=== PATIENT | female | born 1980 | race Caucasian/White ===

== ENCOUNTER 2017-05-15 17:59 | Emergency (ER) | payer OTHER ==
--- NOTE | 2017-05-15 18:12 | PDOC ---
History of Present Illness - General Stated Complaint: OVERDOSE/SUBSTANCE ABUSE Time Seen by Provider: 05/15/17 18:05 History Source: EMS - History of Present Illness Initial Comments: 05/16/17 01:32 36F with pmh of multisubstance abuse brought in by EMS from [address] [place] [address] for narcotic overdose. Per EMS PAtient had pinpoint pupils and unarousable and was given 1 ampoule of narcan intranasally which made the patient aggressive but presently sleeping. Patient currently arousable but goes immediately back to sleep. Good respiratory rate at 20. No signs or respiratory distress or injuries. 05/16/17 01:38 Past History - Past Medical History Allergies/Adverse Reactions: Allergies Allergy/AdvReac Type Severity Reaction Status Date / Time Penicillins Allergy Verified 05/15/17 18:07 Home Medications: Ambulatory Orders NK [No Known Home Medication] 01/04/16 HIV: Yes - Psycho/Social/Smoking Cessation Hx Suicidal Ideation: No Smoking History: Current every day smoker Number of Cigarettes Smoked Daily: 4 Hx Alcohol Use: Yes Drug/Substance Use Hx: Yes (COCAINE ,MARIJUANA) Substance Use Type: Alcohol, Cocaine, Heroin, Marijuana Review of Systems - Review of Systems Able to Perform ROS?: No *Physical Exam - Physical Exam General Appearance: Yes: Intoxicated HEENT: positive: EOMI, NATALIYA, Normal ENT Inspection Respiratory/Chest: positive: Normal Breath Sounds. negative: Chest Tender Cardiovascular: positive: Regular Rhythm, Regular Rate, S1, S2 Vascular Pulses: Dorsalis-Pedis (R): 2+, Doralis-Pedis (L): 2+ Gastrointestinal/Abdominal: positive: Normal Bowel Sounds, Flat, Soft. negative : Tender Lymphatic: negative: Adenopathy Musculoskeletal: positive: Normal Inspection Extremity: positive: Normal Capillary Refill, Normal Inspection. negative: Coldness, Cyanosis Neurologic: positive: Respond to painful stimul, Responsive ED Treatment Course - LABORATORY CBC & Chemistry Diagram: 05/15/17 19:37 05/15/17 19:37 Medical Decision Making - Medical Decision Making 05/16/17 01:38 36 with pmh of multisubstance abuse brought in by EMS from [facility] for narcotic overdose. Urine positive for cocaine, heroin and benzos. Patient sleeping until woke up asking for opiate due to withdrawal, holding her abdomen. Slammed bathroom door, screaming. Patient fell back asleep. Plan is to send the patient back to [address] [place] [address] at 7am. for detox *DC/Admit/Observation/Transfer Diagnosis at time of Disposition: Opiate abuse, continuous
[2017-05-15 18:15] VITALS: BMI 23.1
[2017-05-15 18:36] LABS: URINE APPEARANCE CLEAR; URINE BILIRUBIN NEGATIVE (NEGATIVE); URINE BLOOD 2+ (NEGATIVE); URINE COLOR LTYELLOW; URINE GLUCOSE (UA) NEGATIVE (NEGATIVE); URINE KETONE NEGATIVE (NEGATIVE); URINE LEUK ESTERASE NEGATIVE (NEGATIVE); URINE NITRITE NEGATIVE (NEGATIVE); URINE PROTEIN NEGATIVE (NEGATIVE); URINE UROBILINOGEN NEGATIVE mg/dL (0.2-1.0)
[2017-05-15 18:53] LABS: URINE MARIJUANA THC NEGATIVE ng/ml (CUTOFF=50)
[2017-05-15 18:58] LABS: URINE BACTERIA RARE /hpf (NONE SEEN); URINE MUCUS RARE; URINE RBC 11 /hpf (0-3); URINE WBC 1 /hpf (3-5)
[2017-05-15 19:44] LABS: MCH 28.7 pg (25.7-33.7); MEAN CELL VOLUME 86.8 fl (80-96); MEAN PLT VOLUME 7.9 fl (7.5-11.1); PLATELET COUNT 260 K/MM3 (134-434); WHITE BLOOD COUNT 5.7 K/mm3 (4.0-10.0)
--- NOTE | 2017-05-15 19:46 | PDOC ---
Attending Attestation - Resident Resident Name: Kareem Henry - ED Attending Attestation I have performed the following: I have examined & evaluated the patient, The case was reviewed & discussed with the resident, I agree w/resident's findings & plan, Exceptions are as noted - HPI HPI: 05/15/17 19:44 36 yo F with h/o substance abuse, here from [facility] via ems for overdose. pt reports heroin. is drowsy but arousable. limited history. per EMS pt was brought from [facility]. given dose of narcan en route, woke up and was combative. no known psychiatric history. no other abnormalities. - Physicial Exam PE: 05/15/17 19:45 drowsy, sleeping but arousable with loud voice. pupils small. lungs clear heart rrr nomrg. abd soft nt nd . ext wwp. skin with multiple scars and track santana noted over viens. nuero sleeping but answers questions. voice quiet, mumbling. moves all extremites. ambulated without difficulty - Medical Decision Making 05/16/17 01:35 plan r/o coingestion. no need for repeat narcan now. reassess when clinically more awake labs ivfluids, cbc lytes tox screen with salicylate and tylenol levels.
[2017-05-15] MEDS ORDERED: SODIUM CHLORIDE 1,000 ML IV STA (20:05)
[2017-05-15 20:18] LABS: ALBUMIN 2.4 g/dl (3.4-5.0); ALK PHOS 73 U/L (45-117); ANION GAP 6 (8-16); BILIRUBIN,TOTAL 0.1 mg/dL (0.2-1.0); CALCIUM 8.2 mg/dL (8.5-10.1); CO2 26 mmol/L (21-32); CREATININE 0.9 mg/dL (0.55-1.02); GLUCOSE,RANDOM 85 mg/dL (74-106); SGOT/AST 42 U/L (15-37); SGPT/ALT 30 U/L (12-78); TOT PROT 7.4 g/dl (6.4-8.2)
[2017-05-15 20:37] LABS: PLATELET ESTIMATE ADEQUATE (NORMAL)
[2017-05-15 20:38] LABS: REACTIVE LYMPHOCYTES 3 % (0-80); TOTAL CELLS COUNTED 100
--- NOTE | 2017-05-16 05:38 | PDOC ---
*Physical Exam - Vital Signs Last Vital Signs Temp Pulse Resp BP Pulse Ox 97.9 F 70 16 101/67 98 05/16/17 05:30 05/16/17 05:30 05/16/17 05:30 05/16/17 05:30 05/16/17 05:30 ED Treatment Course - LABORATORY CBC & Chemistry Diagram: 05/15/17 19:37 05/15/17 19:37 - ADDITIONAL ORDERS Additional order review: Laboratory Results 05/15/17 05/15/17 05/15/17 19:39 19:39 19:37 Sodium 140 Potassium 4.2 Chloride 108 H Carbon Dioxide 26 Anion Gap 6 L BUN 15 Creatinine 0.9 Creat Clearance w eGFR > 60 Random Glucose 85 Calcium 8.2 L Total Bilirubin 0.1 L AST 42 H ALT 30 Alkaline Phosphatase 73 Total Protein 7.4 Albumin 2.4 L Urine Color Urine Appearance Urine pH Ur Specific [place] Urine Protein Urine Glucose (UA) Urine Ketones Urine Blood Urine Nitrite Urine Bilirubin Urine Urobilinogen Ur Leukocyte Esterase Urine RBC Urine WBC Ur Epithelial Cells Urine Bacteria Urine Mucus Salicylates < 4.0 Opiates Screen Methadone Screen Acetaminophen Barbiturate Screen Phencyclidine Screen Ur Amphetamines Screen MDMA (Ecstasy) Screen Benzodiazepines Screen Cocaine Screen U Marijuana (THC) Screen Alcohol, Quantitative < 5.0 05/15/17 05/15/17 05/15/17 19:37 18:28 18:28 Sodium Potassium Chloride Carbon Dioxide Anion Gap BUN Creatinine Creat Clearance w eGFR Random Glucose Calcium Total Bilirubin AST ALT Alkaline Phosphatase Total Protein Albumin Urine Color Ltyellow Urine Appearance Clear Urine pH 6.0 Ur Specific [place] 1.015 Urine Protein Negative Urine Glucose (UA) Negative Urine Ketones Negative Urine Blood 2+ H Urine Nitrite Negative Urine Bilirubin Negative Urine Urobilinogen Negative Ur Leukocyte Esterase Negative Urine RBC 11 Urine WBC 1 Ur Epithelial Cells Moderate Urine Bacteria Rare Urine Mucus Rare Salicylates Opiates Screen Positive Methadone Screen Negative Acetaminophen < 2.000 L Barbiturate Screen Negative Phencyclidine Screen Negative Ur Amphetamines Screen Negative MDMA (Ecstasy) Screen Negative Benzodiazepines Screen Positive Cocaine Screen Positive U Marijuana (THC) Screen Negative Alcohol, Quantitative 05/15/17 19:37 RBC 3.76 MCV 86.8 MCHC 33.0 RDW 14.0 MPV 7.9 Neutrophils % Y Lymphocytes % Y - Medications Given in the ED: ED Medications Discontinued Medications Generic Name Dose Route Start Last Admin Trade Name Bel PRN Reason Stop Dose Admin Sodium Chloride 1,000 mls @ 1,000 mls/hr 05/15/17 20:05 05/15/17 20:06 Normal Saline - IV 05/15/17 21:04 1,000 mls/hr ASDIR STA Administration Medical Decision Making - Medical Decision Making 05/16/17 05:36 Sign-out received from outgoing Emergency Physician DR. Chandler Pt interviewed and examined Ancillary studies reviewed Case discussed in detail with oncoming Emergency Physician including history, physical exam and ancillary studies. Vital Signs Temp Pulse Resp BP Pulse Ox 97.9 F 70 16 101/67 98 05/16/17 05:30 05/16/17 05:30 05/16/17 05:30 05/16/17 05:30 05/16/17 05:30 Patient's blood work and toxicological screen reviewed. The patient has been observed for over 11 hours and now is ambulatory and awake. She is requesting detoxification from polysubstance abuse. I spoken with Dr. Steele who states the patient can be sent to [address] [place] [address] at 8 am. Pt agrees with plan. *DC/Admit/Observation/Transfer Diagnosis at time of Disposition: Opiate abuse, continuous - Discharge Dispostion Disposition: TRANSFER ACUTE CARE/OTHER HOSP Condition at time of disposition: Stable - Transfer to Acute Care Facility Accepting Physician:: Dr. Benson. [facility].
[2017-05-16 08:28] VITALS: TEMP 98.1
[2017-05-16 08:40] VITALS: BP 102/68; PULSE 66
--- NOTE | 2017-05-17 21:35 | EKG ---
Test Reason : Blood Pressure : / mmHG Vent. Rate : 074 BPM Atrial Rate : 074 BPM P-R Int : 196 ms QRS Dur : 090 ms QT Int : 394 ms P-R-T Axes : 051 022 037 degrees QTc Int : 437 ms POOR DATA QUALITY, INTERPRETATION MAY BE ADVERSELY AFFECTED NORMAL SINUS RHYTHM NORMAL ECG NO PREVIOUS ECGS AVAILABLE Confirmed by KATERINA OSORIO MD ([id number]) on 05/17/2017 9:34:49 PM Referred By: Confirmed By:KATERINA OSORIO MD
== END 2017-05-16 08:43 | disposition other institution (70) ==
LOC: JER 17:59
PROC: 3E0337Z Introduction of Electrolytic and Water Balance Substance into Peripheral Vein, Percutaneous Approach (ICD-10-PCS; principal; 2017-05-15)
DX: F11.10 Opioid abuse, uncomplicated (principal); T40.1X4A Poisoning by heroin, undetermined, initial encounter; Y92.89 Other specified places as the place of occurrence of the external cause; F14.10 Cocaine abuse, uncomplicated; F13.10 Sedative, hypnotic or anxiolytic abuse, uncomplicated
CPT/HCPCS: 36415; 80053; 80307; 81003; 81015; 85025; 93005; 93010; 96360; 99285-25

== ENCOUNTER 2017-05-16 09:37 | Inpatient (IN) | payer OTHER ==
[2017-05-16 09:54] VITALS: BMI 19.3
--- NOTE | 2017-05-16 12:16 | HP ---
COWS - Scale Resting Pulse: 0= [place] 80 or Below Sweatin= Chills/Flushing Restless Observation: 1= Difficult to Sit Still Pupil Size: 0= Normal to Room Light Bone or Joint Aches: 2= Severe Diffuse Aches Runny Nose/ Eye Tearin= Runny Nose/Eyes GI Upset > 30mins: 2= Nausea/Diarrhea Tremor Observation: 1= Tremor [place], Not Seen Yawning Observation: 1= 1-2x During Session Anxiety or Irritability: 2=Irritable/Anxious Goose Flesh Skin: 0=Smooth Skin COWS Score: 12 Admission ROS S - HPI Chief Complaint: I need detox, I'm sick Allergies/Adverse Reactions: Allergies Allergy/AdvReac Type Severity Reaction Status Date / Time Penicillins Allergy Verified 05/16/17 11:52 History of Present Illness: 36 yo woman here for detox from heroin - was here yesterday, sent to [facility] ED for observation/eval due to oversedation - now comes here from [facility] ED for detox. Patient HIV+ but no care for three years,history of seizures and untreated hep c. Exam Limitations: Clinical Condition - Ebola screening Have you traveled outside of the country in the last 21 days: No Have you had contact with anyone from an Ebola affected area: No Have you been sick,other than usual withdrawal symptoms: No Do you have a fever: No - Review of Systems Constitutional: Chills, Loss of Appetite, Malaise, Night Sweats, Changes in sleep, Weakness, Unintentional Wgt. Loss EENT: reports: Nose Congestion Respiratory: reports: No Symptoms reported Cardiac: reports: No Symptoms Reported GI: reports: Poor Appetite, Indigestion, Abdominal cramping : reports: No Symptoms Reported Musculoskeletal: reports: Back Pain, Muscle Pain, Muscle Weakness Integumentary: reports: Lesions (right thigh healed scab; back of left calf with erythematous swelling covered by bandaid) Neuro: reports: Headache, Seizure Endocrine: reports: No Symptoms Reported Hematology: reports: No Symptoms Reported Psychiatric: reports: Judgement Intact, Mood/Affect Appropiate, Orientated x3 Other Systems: Reviewed and Negative Patient History - Patient Medical History Hx Asthma: No Hx Chronic Obstructive Pulmonary Disease (COPD): No Hx Cancer: No Hx Cardiac Disorders: No Hx Hypertension: No Hx Seizures: Yes (last one month - drug related) Hx Diabetes: No Hx Gastrointestinal Disorders: No Hx Genitourinary Disorders: No Hx Sexually Transmitted Disorders: No Hx Renal Disease (ESRD): No Hx Human Immunodeficiency Virus (HIV): Yes (no treatment or care x 3 years) Hx Hepatitis C: Yes (not treated) Hx Depression: Yes (history of being hospitalized years ago) Hx Suicide Attempt: Yes (long time) Hx Bipolar Disorder: Yes Hx Schizophrenia: Yes (sometimes hears voices) - Patient Surgical History Past Surgical History: No Hx Neurologic Surgery: No Hx Cataract Extraction: No Hx Cardiac Surgery: No Hx Lung Surgery: No Hx Breast Surgery: No Hx Breast Biopsy: No Hx Abdominal Surgery: No Hx Appendectomy: No Hx Cholecystectomy: No Hx Genitourinary Surgery: No Hx Section: No Hx Orthopedic Surgery: No Anesthesia Reaction: No - PPD History Previous Implant?: Yes Documented Results: Negative w/o proof - Reproductive History Patient is a Female of Child Bearing Age (11 -55 yrs old): Yes - Smoking Cessation Smoking history: Current every day smoker Aproximately how many cigarettes per day: 4 Hx Chewing Tobacco Use: No Initiated information on smoking cessation: Yes 'Breaking Loose' booklet given: 05/16/17 (give on floor) - Substance & Tx. History Hx Alcohol Use: No Hx Substance Use: Yes Substance Use Type: Cocaine, Heroin Hx Substance Use Treatment: Yes (detox, rehab) - Substances Abused Heroin Route: Injection Frequency: Daily Amount used: 1gm Age of first use: 16 Date of Last Use: 05/15/17 Cocaine Route: Injection Frequency: Daily Amount used: 3 bags Age of first use: 20 Date of Last Use: 05/15/17 Family Disease History - Family Disease History Family Disease History: Other: Father (no contact), Mother (living, no contact) , Brother (none), Sister (none), Son (3 sons - in [place] - healthy), Daughter ( 2 daughters -[place] - healthy) Admission Physical Exam S - Vital Signs Vital Signs: Vital Signs - 24 hr 05/16/17 09:52 Temperature 98.9 F Pulse Rate 72 Respiratory 18 Rate Blood Pressure 118/85 - Physical General Appearance: Yes: Nourished, Appropriately Dressed, Moderate Distress, Thin, Irritable HEENTM: Yes: Hearing grossly Normal, Normocephalic, Normal Voice, Other (oral thrush) Respiratory: Yes: Normal Breath Sounds, No Respiratory Distress Neck: Yes: No masses,lesions,Nodules, Supple Breast: Yes: Breast Exam Deferred Cardiology: Yes: Regular Rhythm, Regular Rate Abdominal: Yes: Flat, Soft Genitourinary: Yes: Within Normal Limits Back: Yes: Normal Inspection Musculoskeletal: Yes: full range of Motion, Muscle Pain, Muscle weakness Extremities: Yes: Normal Range of Motion Neurological: Yes: Alert Integumentary: Yes: Warm, Track [place] (both arms, left jugular, legs), Other ( healed scab right thigh; erythematous painful swelling behind left calf) Lymphatic: Yes: Within Normal Limits - Diagnostic (1) Cocaine abuse Current Visit: Yes Status: Chronic (2) Opiate abuse, continuous Current Visit: Yes Status: Chronic (3) HIV (human immunodeficiency virus infection) Current Visit: Yes Status: Chronic (4) Hepatitis C Current Visit: Yes Status: Chronic Qualifiers: Viral hepatitis chronicity: chronic Hepatic coma status: without hepatic coma Qualified Code(s): B18.2 - Chronic viral hepatitis C (5) Abscess Current Visit: Yes Status: Acute Comment: left calf (6) History of seizure Current Visit: Yes Status: Chronic (7) Nicotine dependence Current Visit: Yes Status: Acute Qualifiers: Nicotine product type: cigarettes Substance use status: uncomplicated Qualified Code(s): F17.210 - Nicotine dependence, cigarettes, uncomplicated (8) Oral thrush Current Visit: Yes Status: Chronic Cleared for Admission [facility] - Detox or Rehab [facility] Level of Care: Medically Managed Detox Regimen/Protocol: Methadone [facility] Breath Alcohol Content Breath Alcohol Content: 0 Urine Pregancy Test - Result Urine Test Results: Negative- NO Line Present Urine Drug Screen - Results Drug Screen Negative: No Urine Drug Screen Results: ISNCERE-Cocaine, OPI-Opiates, BZO-Benzodiazepines
[2017-05-16] MEDS ORDERED: IBUPROFEN 400 MG TABLET (FP) PO PRN (12:37)
[2017-05-16] MEDS ORDERED: NICOTINE POLACRILEX 2 MG GUM BUC PRN (12:37)
[2017-05-16] MEDS ORDERED: ACETAMINOPHEN 325 MG TABLET (FP) PO PRN (12:37)
[2017-05-16] MEDS ORDERED: P-EPHED 60MG/TRIPROLIDI 2.5MG TABLET PO PRN (12:37)
[2017-05-16] MEDS ORDERED: LOPERAMIDE HCL 2 MG CAPSULE PO PRN (12:37)
[2017-05-16] MEDS ORDERED: MAGNESIUM CITRATE 300 ML BOTTLE PO PRN (12:37)
[2017-05-16] MEDS ORDERED: guaiFENesin/D-METHORPHAN HB 10 ML UNIT-DOSE CUPS PO PRN (12:37)
[2017-05-16] MEDS ORDERED: MENTHOL/PHENOL 1 EACH UD MM PRN (12:37)
[2017-05-16] MEDS ORDERED: MAGNESIUM HYDROX 2400MG/30ML ORAL SUSPENSION 30 ML CUP PO PRN (12:37)
[2017-05-16] MEDS ORDERED: METHADONE HCL 10 MG TABLET (FOR DETOX USE ONLY) PO ONE ×2 (13:15→23:00)
[2017-05-16] MEDS: diazePAM 5 MG TABLET PO PRN ×2 (14:33→22:26)
[2017-05-16] MEDS: CEFUROXIME AXETIL 250 MG TABLET PO SCH ×2 (15:19→22:26)
[2017-05-16] MEDS: CLOTRIMAZOLE 10 MG TROCHE (FP) PO SCH ×3 (15:20→22:26)
[2017-05-16 18:54] LABS: URINE APPEARANCE SLCLOUDY; URINE BILIRUBIN NEGATIVE (NEGATIVE); URINE BLOOD 1+ (NEGATIVE); URINE COLOR YELLOW; URINE GLUCOSE (UA) NEGATIVE (NEGATIVE); URINE KETONE NEGATIVE (NEGATIVE); URINE LEUK ESTERASE NEGATIVE (NEGATIVE); URINE NITRITE NEGATIVE (NEGATIVE); URINE PROTEIN NEGATIVE (NEGATIVE); URINE UROBILINOGEN NEGATIVE mg/dL (0.2-1.0)
[2017-05-16 19:06] LABS: URINE BACTERIA RARE /hpf (NONE SEEN); URINE MUCUS RARE; URINE RBC 29 /hpf (0-3); URINE WBC <1 /hpf (3-5)
[2017-05-16] MEDS: THIAMINE HCL 100 MG TABLET (FP) PO SCH (22:26)
[2017-05-16] MEDS: diphenhydrAMINE HCL 50 MG CAPSULE PO PRN (22:27)
[2017-05-17] MEDS: CLOTRIMAZOLE 10 MG TROCHE (FP) PO SCH ×5 (05:29→22:23)
[2017-05-17] MEDS: diazePAM 5 MG TABLET PO PRN ×2 (05:30→10:28)
[2017-05-17 09:59] LABS: MCH 28.6 pg (25.7-33.7); MCHC 33.5 g/dl (32.0-36.0); MEAN CELL VOLUME 85.6 fl (80-96); PLATELET COUNT 315 K/MM3 (134-434); RDW 13.5 % (11.6-15.6); WHITE BLOOD COUNT 4.3 K/mm3 (4.0-10.0)
[2017-05-17] MEDS ORDERED: METHADONE HCL 10 MG TABLET (FOR DETOX USE ONLY) PO ONE (10:00)
[2017-05-17] MEDS: PRENATAL VITAMINS W/ FOLIC ACID TABLET (FP) PO SCH (10:26)
[2017-05-17] MEDS: CEFUROXIME AXETIL 250 MG TABLET PO SCH ×2 (10:26→22:22)
[2017-05-17 10:30] LABS: ALBUMIN 2.4 g/dl (3.4-5.0); ALK PHOS 75 U/L (45-117); ANION GAP 5 (8-16); BILIRUBIN,TOTAL 0.3 mg/dL (0.2-1.0); CALCIUM 8.2 mg/dL (8.5-10.1); CO2 26 mmol/L (21-32); CREATININE 0.8 mg/dL (0.55-1.02); GLUCOSE,RANDOM 89 mg/dL (74-106); SGOT/AST 34 U/L (15-37); SGPT/ALT 29 U/L (12-78); TOT PROT 7.3 g/dl (6.4-8.2)
[2017-05-17] MEDS: hydrOXYzine PAMOATE 50 MG CAPSULE (FP) PO PRN ×3 (11:13→23:31)
[2017-05-17] MEDS ORDERED: chlordiazePOXIDE HCL 25 MG CAPSULE PO PRN (12:35)
[2017-05-17] MEDS ORDERED: chlordiazePOXIDE HCL 25 MG CAPSULE PO ONE (12:35)
--- NOTE | 2017-05-17 15:13 | PN ---
[facility] CIWA - CIWA Score Nausea/Vomitin Muscle Tremors: 3 Anxiety: 2 Agitation: 2 Paroxysmal Sweats: 1-Minimal Palms Moist Orientation: 0-Oriented Tacttile Disturbances: 1-Very Mild Itch/Numbness Auditory Disturbances: 1-Very Mild Visual Disturbances: 1-Very Mild Sensitivity Headache: 2-Mild CIWA-Ar Total Score: 16 BHS COWS - Scale Resting Pulse: 0= [place] 80 or Below Sweatin= Chills/Flushing Restless Observation: 3= Extraneous Movement Pupil Size: 1= Pupils >than Normal Bone or Joint Aches: 2= Severe Diffuse Aches Runny Nose/ Eye Tearin= Runny Nose/Eyes GI Upset > 30mins: 2= Nausea/Diarrhea Tremor Observation of Outstretched Hands: 2= Slight Tremor Visible Yawning Observation: 1= 1-2x During Session Anxiety or Irritability: 2=Irritable/Anxious Goose Flesh Skin: 0=Smooth Skin COWS Score: 16 S Progress Note (SOAP) Subjective: ALERT,IRRITABLE,ANXIOUS,INTERRUPTED SLEEP,PAIN IN THE BODY AND BACK,TREMOR Objective: 05/17/17 15:10 Vital Signs Temperature 98.1 F 05/17/17 14:10 Pulse Rate 86 05/17/17 14:10 Respiratory Rate 18 05/17/17 14:10 Blood Pressure 113/80 05/17/17 14:10 O2 Sat by Pulse Oximetry (%) EKG NSR WITH MARKED SINUS ARRHYTHMIA ST DEGREE AV BLOCK Laboratory Last Values WBC 4.3 K/mm3 (4.0-10.0) 05/17/17 07:50 RBC 3.98 M/mm3 (3.60-5.2) 05/17/17 07:50 Hgb 11.4 GM/dL (10.7-15.3) 05/17/17 07:50 Hct 34.1 % (32.4-45.2) 05/17/17 07:50 MCV 85.6 fl (80-96) 05/17/17 07:50 MCH 28.6 pg (25.7-33.7) 05/17/17 07:50 MCHC 33.5 g/dl (32.0-36.0) 05/17/17 07:50 RDW 13.5 % (11.6-15.6) 05/17/17 07:50 Plt Count 315 K/MM3 (134-434) D 05/17/17 07:50 MPV 8.0 fl (7.5-11.1) 05/17/17 07:50 Sodium 141 mmol/L (136-145) 05/17/17 07:50 Potassium 4.4 mmol/L (3.5-5.1) 05/17/17 07:50 Chloride 110 mmol/L (98-107) H 05/17/17 07:50 Carbon Dioxide 26 mmol/L (21-32) 05/17/17 07:50 Anion Gap 5 (8-16) L 05/17/17 07:50 BUN 11 mg/dL (7-18) D 05/17/17 07:50 Creatinine 0.8 mg/dL (0.55-1.02) 05/17/17 07:50 Creat Clearance w eGFR > 60 (>60) 05/17/17 07:50 Random Glucose 89 mg/dL (74-106) 05/17/17 07:50 Calcium 8.2 mg/dL (8.5-10.1) L 05/17/17 07:50 Total Bilirubin 0.3 mg/dL (0.2-1.0) D 05/17/17 07:50 AST 34 U/L (15-37) 05/17/17 07:50 ALT 29 U/L (12-78) 05/17/17 07:50 Alkaline Phosphatase 75 U/L (45-117) 05/17/17 07:50 Total Protein 7.3 g/dl (6.4-8.2) 05/17/17 07:50 Albumin 2.4 g/dl (3.4-5.0) L 05/17/17 07:50 Urine Color Yellow 05/16/17 13:28 Urine Appearance Slcloudy 05/16/17 13:28 Urine pH 7.0 (5.0-8.0) 05/16/17 13:28 Ur Specific [place] 1.015 (1.005-1.025) 05/16/17 13:28 Urine Protein Negative (NEGATIVE) 05/16/17 13:28 Urine Glucose (UA) Negative (NEGATIVE) 05/16/17 13:28 Urine Ketones Negative (NEGATIVE) 05/16/17 13:28 Urine Blood 1+ (NEGATIVE) H 05/16/17 13:28 Urine Nitrite Negative (NEGATIVE) 05/16/17 13:28 Urine Bilirubin Negative (NEGATIVE) 05/16/17 13:28 Urine Urobilinogen Negative mg/dL (0.2-1.0) 05/16/17 13:28 Ur Leukocyte Esterase Negative (NEGATIVE) 05/16/17 13:28 Urine RBC 29 /hpf (0-3) 05/16/17 13:28 Urine WBC <1 /hpf (3-5) 05/16/17 13:28 Ur Epithelial Cells Rare /hpf (FEW) 05/16/17 13:28 Urine Bacteria Rare /hpf (NONE SEEN) 05/16/17 13:28 Urine Mucus Rare 05/16/17 13:28 RPR Titer Nonreactive (NONREACTIVE) 05/17/17 07:50 Assessment: 05/17/17 15:12 WITHDRAWAL SYMPTOM Plan: CONTINUE DETOX,PATIENT WOULD LIKE REGIMEN TO CHANGE TO LIBRIUM INSTEAD OF VALIUM
[2017-05-17] MEDS: chlordiazePOXIDE HCL 25 MG CAPSULE PO SCH ×2 (17:38→22:23)
--- NOTE | 2017-05-17 22:11 | EKG ---
Test Reason : Blood Pressure : / mmHG Vent. Rate : 060 BPM Atrial Rate : 060 BPM P-R Int : 258 ms QRS Dur : 100 ms QT Int : 456 ms P-R-T Axes : 039 022 033 degrees QTc Int : 456 ms SINUS RHYTHM WITH MOBITZ I (WENCKEBACH) BLOCK WHEN COMPARED WITH ECG OF 15-MAY-2017 18:56, MOBITZ I (WENCKEBACH) BLOCK IS NOW PRESENT Confirmed by DEVON BUSTAMANTE, KATERINA ([id number]) on 05/17/2017 10:11:18 PM Referred By: Confirmed By:KATERINA OSORIO MD
[2017-05-17] MEDS: diphenhydrAMINE HCL 50 MG CAPSULE PO PRN (22:22)
[2017-05-17] MEDS: THIAMINE HCL 100 MG TABLET (FP) PO SCH (22:23)
[2017-05-18] MEDS: chlordiazePOXIDE HCL 25 MG CAPSULE PO SCH ×4 (05:43→23:15)
[2017-05-18] MEDS: CLOTRIMAZOLE 10 MG TROCHE (FP) PO SCH ×5 (05:43→22:32)
--- NOTE | 2017-05-18 07:40 | CONSULT ---
[facility] Psychiatric Consult - Data Date of interview: 05/18/17 Admission source: [facility] Identifying data: This is 36 years old female with history of Bipolar Disorder and Schizophrenia, history of psychiatric hospitalizations, intoxiocated with Cocaine, Heroina and Nicotine Substance Abuse History: - Smoking Cessation. Smoking history: Current every day smoker. Aproximately how many cigarettes per day: 4. Hx Chewing Tobacco Use: No. Initiated information on smoking cessation: Yes. 'Breaking Loose' booklet given: 05/16/17 (give on floor). - Substance & Tx. History. Hx Alcohol Use: No. Hx Substance Use: Yes. Substance Use Type: Cocaine, Heroin. Hx Substance Use Treatment: Yes (detox, rehab). - Substances Abused. Heroin. Route: Injection. Frequency: Daily. Amount used: 1gm. Age of first use: 16. Date of Last Use: 05/15/17. Cocaine. Route: Injection. Frequency : Daily. Amount used: 3 bags. Age of first use: 20. Date of Last Use: Medical History: HIV, HepC+, Seizure history, Psychiatric History: Patient reports history od Bipolar Disorder, as per computer tjere is a history of Schizophrenia, with most recent psychiatroc admission on 6 weeks ago at [facility] for safety, reportw history of suicidal attempts, no scure, stitches are visible, reports taking in the past: Deopakote 250mg po bid. Trazodone 100mg po qhs Physical/Sexual Abuse/Trauma History: Denies, unclear Additional Comment: Deopakote 250mg po bid. Trazodone 100mg po qhs Mental Status Exam - Mental Status Exam Alert and Oriented to: Person Cognitive Function: Fair Patient Appearance: Unkempt Mood: Withdrawn, Anxious, Irritable Affect: Constricted Patient Behavior: Cooperative Speech Pattern: Delayed Voice Loudness: Mildly Loud Thought Process: Circumstantial Thought Disorder: Being Controlled Hallucinations: Denies Suicidal Ideation: Denies Homicidal Ideation: Denies Insight/Judgement: Fair Sleep: Difficulty falling asleep Appetite: Weight loss Muscle strength/Tone: Normal Gait/Station: Shuffling Additional Comments: Deopakote 250mg po bid. Trazodone 100mg po qhs. Haldol 2mg po stat. Benadryl 50mg po stat Psychiatric Findings - Problem List ([place] 1, 2,3) (1) Nicotine dependence Current Visit: Yes Status: Acute Qualifiers: Nicotine product type: cigarettes Substance use status: uncomplicated Qualified Code(s): F17.210 - Nicotine dependence, cigarettes, uncomplicated (2) Cocaine abuse Current Visit: Yes Status: Chronic (3) Opiate abuse, continuous Current Visit: Yes Status: Chronic (4) Bipolar 1 disorder Current Visit: Yes Status: Acute (5) Schizophrenia Current Visit: Yes Status: Acute - Initial Treatment Plan Initial Treatment Plan: Deopakote 250mg po bid. Trazodone 100mg po qhs. Haldol 2mg po stat. Benadryl 50mg po stat
[2017-05-18] MEDS: cloNIDine HCL 0.1 MG TABLET PO SCH ×2 (09:03→22:33)
[2017-05-18] MEDS ORDERED: diphenhydrAMINE HCL 25 MG CAPSULE (FP) PO ONE (09:15)
[2017-05-18] MEDS ORDERED: HALOPERIDOL 2 MG TABLET PO ONE (09:15)
[2017-05-18] MEDS: CEFUROXIME AXETIL 250 MG TABLET PO SCH ×2 (09:42→22:55)
[2017-05-18] MEDS: PRENATAL VITAMINS W/ FOLIC ACID TABLET (FP) PO SCH (09:42)
[2017-05-18] MEDS: DIVALPROEX SODIUM 250 MG TABLET E.C. (FP) PO SCH ×2 (09:43→22:32)
[2017-05-18] MEDS ORDERED: METHADONE HCL 5 MG TABLET (FOR DETOX USE ONLY) PO ONE (10:00)
[2017-05-18] MEDS: hydrOXYzine PAMOATE 50 MG CAPSULE (FP) PO PRN ×2 (10:33→15:35)
--- NOTE | 2017-05-18 11:28 | PN ---
[facility] CIWA - CIWA Score Nausea/Vomitin-No Nausea/No Vomiting Muscle Tremors: 4-Moderate,w/Arms Extend Anxiety: 3 Agitation: 4-Moderately Restless Paroxysmal Sweats: 3 Orientation: 0-Oriented Tacttile Disturbances: 0-None Auditory Disturbances: 0-None Visual Disturbances: 0-None Headache: 0-None Present CIWA-Ar Total Score: 14 BHS COWS - Scale Resting Pulse: 2= [place] 101-120 Sweatin= Chills/Flushing Restless Observation: 1= Difficult to Sit Still Pupil Size: 0= Normal to Room Light Bone or Joint Aches: 2= Severe Diffuse Aches Runny Nose/ Eye Tearin= Nasal Congestion GI Upset > 30mins: 2= Nausea/Diarrhea Tremor Observation of Outstretched Hands: 2= Slight Tremor Visible Yawning Observation: 2= >3x During Session Anxiety or Irritability: 2=Irritable/Anxious Goose Flesh Skin: 0=Smooth Skin COWS Score: 15 S Progress Note (SOAP) Subjective: irritable agitation anxiety sweats interrupted sleep cut to my right ear Objective: 05/18/17 11:29 Vital Signs Temperature 97.0 F L 05/18/17 10:00 Pulse Rate 104 H 05/18/17 10:00 Respiratory Rate 20 05/18/17 10:00 Blood Pressure 122/86 05/18/17 10:00 O2 Sat by Pulse Oximetry (%) Laboratory Tests 05/16/17 05/17/17 05/17/17 13:28 07:50 07:50 WBC 4.3 RBC 3.98 Hgb 11.4 Hct 34.1 MCV 85.6 MCH 28.6 MCHC 33.5 RDW 13.5 Plt Count 315 D MPV 8.0 Sodium 141 Potassium 4.4 Chloride 110 H Carbon Dioxide 26 Anion Gap 5 L BUN 11 D Creatinine 0.8 Creat Clearance w eGFR > 60 Random Glucose 89 Calcium 8.2 L Total Bilirubin 0.3 D AST 34 ALT 29 Alkaline Phosphatase 75 Total Protein 7.3 Albumin 2.4 L Urine Color Yellow Urine Appearance Slcloudy Urine pH 7.0 Ur Specific [place] 1.015 Urine Protein Negative Urine Glucose (UA) Negative Urine Ketones Negative Urine Blood 1+ H Urine Nitrite Negative Urine Bilirubin Negative Urine Urobilinogen Negative Ur Leukocyte Esterase Negative Urine RBC 29 Urine WBC <1 Ur Epithelial Cells Rare Urine Bacteria Rare Urine Mucus Rare RPR Titer 05/17/17 07:50 WBC RBC Hgb Hct MCV MCH MCHC RDW Plt Count MPV Sodium Potassium Chloride Carbon Dioxide Anion Gap BUN Creatinine Creat Clearance w eGFR Random Glucose Calcium Total Bilirubin AST ALT Alkaline Phosphatase Total Protein Albumin Urine Color Urine Appearance Urine pH Ur Specific [place] Urine Protein Urine Glucose (UA) Urine Ketones Urine Blood Urine Nitrite Urine Bilirubin Urine Urobilinogen Ur Leukocyte Esterase Urine RBC Urine WBC Ur Epithelial Cells Urine Bacteria Urine Mucus RPR Titer Nonreactive awake/alert ambulating no acute distress Assessment: 05/18/17 11:29 withdrawal sx Plan: continue detox increase fluids bacitracin oint
[2017-05-18] MEDS ORDERED: BACITRACIN 0.9 GM PACKET ONE (11:53)
[2017-05-18] MEDS: BACITRACIN 0.9 GM PACKET TP SCH ×2 (13:31→22:32)
[2017-05-18] MEDS: THIAMINE HCL 100 MG TABLET (FP) PO SCH (22:32)
[2017-05-18] MEDS: traZODone HCL 50 MG TABLET (FP) PO SCH (22:32)
[2017-05-18] MEDS: SILVER SULFADIAZINE 1% TOP CREAM 50 GM JAR TP SCH (22:55)
[2017-05-19] MEDS: chlordiazePOXIDE HCL 25 MG CAPSULE PO SCH ×2 (06:19→10:02)
[2017-05-19] MEDS: CLOTRIMAZOLE 10 MG TROCHE (FP) PO SCH ×5 (06:19→22:14)
[2017-05-19] MEDS ORDERED: METHADONE HCL 5 MG TABLET (FOR DETOX USE ONLY) PO ONE (10:00)
[2017-05-19] MEDS: BACITRACIN 0.9 GM PACKET TP SCH ×2 (10:02→22:13)
[2017-05-19] MEDS: DIVALPROEX SODIUM 250 MG TABLET E.C. (FP) PO SCH ×2 (10:02→22:14)
[2017-05-19] MEDS: cloNIDine HCL 0.1 MG TABLET PO SCH ×2 (10:02→22:13)
[2017-05-19] MEDS: PRENATAL VITAMINS W/ FOLIC ACID TABLET (FP) PO SCH (10:02)
[2017-05-19] MEDS: CEFUROXIME AXETIL 250 MG TABLET PO SCH ×2 (10:02→22:14)
[2017-05-19] MEDS: SILVER SULFADIAZINE 1% TOP CREAM 50 GM JAR TP SCH ×2 (10:47→22:14)
[2017-05-19] MEDS: CYCLOBENZAPRINE HCL 10 MG TABLET (FP) PO PRN ×3 (11:46→22:14)
--- NOTE | 2017-05-19 11:54 | PN ---
BHS Progress Note (SOAP) Subjective: sweats agitation body aches shakes Objective: 05/19/17 11:53 Vital Signs Temperature 97.5 F L 05/19/17 10:34 Pulse Rate 90 05/19/17 10:34 Respiratory Rate 18 05/19/17 10:34 Blood Pressure 106/71 05/19/17 10:34 O2 Sat by Pulse Oximetry (%) awake/alert ambulating no acute distress Assessment: 05/19/17 11:53 withdrawal sx Plan: continue detox increase fluids flexiril prn
[2017-05-19] MEDS: hydrOXYzine PAMOATE 50 MG CAPSULE (FP) PO PRN ×2 (12:37→18:34)
[2017-05-19] MEDS: MAG HYDROX/AL HYDROX/SIMETH 30 ML UNIT-DOSE CUP PO PRN ×2 (12:37→22:18)
[2017-05-19] MEDS: chlordiazePOXIDE 5 MG CAPSULE PO SCH ×2 (17:09→22:54)
[2017-05-19] MEDS: traZODone HCL 50 MG TABLET (FP) PO SCH (22:14)
[2017-05-19] MEDS: THIAMINE HCL 100 MG TABLET (FP) PO SCH (22:14)
[2017-05-20] MEDS: chlordiazePOXIDE 5 MG CAPSULE PO SCH ×2 (06:44→10:36)
[2017-05-20] MEDS: CLOTRIMAZOLE 10 MG TROCHE (FP) PO SCH ×5 (06:44→22:14)
[2017-05-20] MEDS ORDERED: METHADONE HCL 10 MG TABLET (FOR DETOX USE ONLY) PO ONE (10:00)
[2017-05-20] MEDS: PRENATAL VITAMINS W/ FOLIC ACID TABLET (FP) PO SCH (10:37)
[2017-05-20] MEDS: DIVALPROEX SODIUM 250 MG TABLET E.C. (FP) PO SCH ×2 (10:37→22:14)
[2017-05-20] MEDS: cloNIDine HCL 0.1 MG TABLET PO SCH ×2 (10:37→22:13)
[2017-05-20] MEDS: CEFUROXIME AXETIL 250 MG TABLET PO SCH ×2 (10:37→22:13)
[2017-05-20] MEDS: SILVER SULFADIAZINE 1% TOP CREAM 50 GM JAR TP SCH ×2 (10:37→22:29)
[2017-05-20] MEDS: BACITRACIN 0.9 GM PACKET TP SCH ×2 (10:37→22:13)
--- NOTE | 2017-05-20 11:18 | PN ---
BHS Progress Note (SOAP) Subjective: sweats interrupted sleep anxiety Objective: 05/20/17 11:17 Vital Signs Temperature 97.5 F L 05/20/17 10:25 Pulse Rate 95 H 05/20/17 10:25 Respiratory Rate 18 05/20/17 10:25 Blood Pressure 106/73 05/20/17 10:25 O2 Sat by Pulse Oximetry (%) awake/alert ambulating no acute distress Assessment: 05/20/17 11:18 withdrawal sx Plan: continue detox increase fluids d/c in am
--- NOTE | 2017-05-20 13:47 | PN ---
S Progress Note Note: pt has a small 1.2 x 1.2cm wound to right lower leg, small amount of sloth to inner area, surrounding tissues clean intact with no s/s of infection. minimal amt of yellow drainage noted. wound healing slowly. pt will continue to take her oral ABX as ordered. pt will continue to cleanse wound with normal saline and apply silverdene cream to wound daily until wound is completely healed. pt teaching done by RN on duty. pt is able to demonstrate proper wound care appropriately.
[2017-05-20] MEDS: hydrOXYzine PAMOATE 50 MG CAPSULE (FP) PO PRN ×2 (14:02→18:15)
[2017-05-20] MEDS: CYCLOBENZAPRINE HCL 10 MG TABLET (FP) PO PRN ×2 (14:02→22:14)
[2017-05-20] MEDS: chlordiazePOXIDE HCL 10 MG CAPSULE PO SCH ×2 (17:10→22:14)
[2017-05-20] MEDS: traZODone HCL 50 MG TABLET (FP) PO SCH (22:14)
[2017-05-20] MEDS: diphenhydrAMINE HCL 50 MG CAPSULE PO PRN (22:14)
[2017-05-20] MEDS: THIAMINE HCL 100 MG TABLET (FP) PO SCH (22:14)
[2017-05-21] MEDS ORDERED: METHADONE HCL 5 MG TABLET (FOR DETOX USE ONLY) PO ONE (06:00)
[2017-05-21] MEDS: CLOTRIMAZOLE 10 MG TROCHE (FP) PO SCH ×2 (06:50→09:53)
[2017-05-21] MEDS: chlordiazePOXIDE HCL 10 MG CAPSULE PO SCH (06:50)
--- NOTE | 2017-05-21 09:34 | DS ---
[facility] Detox Discharge Summary Admission Date: 05/16/17 Discharge Date: 05/21/17 - History Present History: Alcohol Dependence, Cocaine Dependence, Opioid Dependence - Physical Exam Results Vital Signs: Vital Signs Temperature 97.0 F L 05/21/17 06:48 Pulse Rate 61 05/21/17 06:48 Respiratory Rate 16 05/21/17 06:48 Blood Pressure 102/62 05/21/17 06:48 O2 Sat by Pulse Oximetry (%) - Treatment Hospital Course: Detox Protocol Followed, Detoxed Safely, Responded well, Discharged Condition Good, Rehab Referral Accepted - Medication Discharge Medications: Ambulatory Orders NK [No Known Home Medication] 05/16/17 - Diagnosis (1) Nicotine dependence Current Visit: Yes Status: Chronic Qualifiers: Nicotine product type: cigarettes Substance use status: uncomplicated Qualified Code(s): F17.210 - Nicotine dependence, cigarettes, uncomplicated (2) Schizophrenia Current Visit: Yes Status: Acute (3) Cocaine abuse Current Visit: Yes Status: Chronic (4) HIV (human immunodeficiency virus infection) Current Visit: Yes Status: Chronic (5) Hepatitis C Current Visit: Yes Status: Chronic Qualifiers: Viral hepatitis chronicity: chronic Hepatic coma status: without hepatic coma Qualified Code(s): B18.2 - Chronic viral hepatitis C (6) History of seizure Current Visit: Yes Status: Chronic - AMA Did Patient Leave Against Medical Advice: No ([facility])
[2017-05-21 09:41] VITALS: BP 117/78; PULSE 91; TEMP 97.2
[2017-05-21] MEDS: PRENATAL VITAMINS W/ FOLIC ACID TABLET (FP) PO SCH (09:53)
[2017-05-21] MEDS: CEFUROXIME AXETIL 250 MG TABLET PO SCH (09:53)
[2017-05-21] MEDS: cloNIDine HCL 0.1 MG TABLET PO SCH (09:53)
[2017-05-21] MEDS: DIVALPROEX SODIUM 250 MG TABLET E.C. (FP) PO SCH (09:53)
[2017-05-21] MEDS: hydrOXYzine PAMOATE 50 MG CAPSULE (FP) PO PRN (09:54)
== END 2017-05-21 10:03 | disposition home or self-care (01) | DRG 773 ==
LOC: YASAS 09:37 → Y6N 12:42
PROVIDERS: ADMIT Internal Medicine Addiction Medicine; ATTEND Internal Medicine Addiction Medicine
PROC: HZ2ZZZZ Detoxification Services for Substance Abuse Treatment (ICD-10-PCS; principal; 2017-05-16)
DX: F11.23 Opioid dependence with withdrawal (principal); F14.20 Cocaine dependence, uncomplicated; F17.210 Nicotine dependence, cigarettes, uncomplicated; F20.9 Schizophrenia, unspecified; B20 Human immunodeficiency virus [HIV] disease; B18.2 Chronic viral hepatitis C; I49.9 Cardiac arrhythmia, unspecified; B37.0 Candidal stomatitis; L02.416 Cutaneous abscess of left lower limb; Z88.0 Allergy status to penicillin; Z91.5 Personal history of self-harm
CPT/HCPCS: 36415; 80053; 81003; 81015; 85027; 86593; 93005; 93010

== ENCOUNTER 2018-12-26 10:23 | Inpatient (IN) | payer OTHER ==
[2018-12-26 15:18] VITALS: BMI 24.2
--- NOTE | 2018-12-26 17:49 | HP ---
"COWS - Scale Resting Pulse: 1= [place] 81-100 (Current hear rate 86) Sweatin= Chills/Flushing Restless Observation: 0= Sits Still Pupil Size: 2= Moderately Dilated (Pupils = 6 mm) Bone or Joint Aches: 1= Mild Discomfort Runny Nose/ Eye Tearin= Nasal Congestion GI Upset > 30mins: 2= Nausea/Diarrhea Tremor Observation: 0= None (IVDU) Yawning Observation: 2= >3x During Session Anxiety or Irritability: 0= None Goose Flesh Skin: 3=Piloerection COWS Score: 13 CIWA Score - Admission Criteria OASAS Guidelines: Admission for Medically Managed Detox: Requires at least one of the followin. CIWA greater than 12 2. Seizures within the past 24 hours 3. Delirium tremens within the past 24 hours 4. Hallucinations within the past 24 hours 5. Acute intervention needed for co occurring medical disorder 6. Acute intervention needed for co occurring psychiatric disorder 7. Severe withdrawal that cannot be handled at a lower level of care (continued vomiting, continued diarrhea, abnormal vital signs) requiring intravenous medication and/or fluids 8. Admission ROS [facility] Chief Complaint: I'm sick. I use heroin. Allergies/Adverse Reactions: Allergies Allergy/AdvReac Type Severity Reaction Status Date / Time Penicillins Allergy Verified 12/26/18 15:12 History of Present Illness: Here for opiate detox. Sedated but easily arousable. Exam began after allowing to sleep for 4 hours, while being closely monitored. . Heroin use since age 16. IVDU. Denies sharing needles or works. No Narcan kit at home. Cocaine use since age 27. IVDU. Nicotine use began at age 10. Denies blackouts or overdose. Last seizure 1 year ago. PMHx: HIV+, Seizures , Hep c., Asthma (Last exacerbation 1 year ago). MHHx; Depression. Denies thoughts of harming self or others. Search Terms: Andrewdanii Wright, 1980 Search Date: 12/26/2018 05:48:08 PM The Drug Utilization Report below displays all of the controlled substance prescriptions, if any, that your patient has filled in the last twelve months. The information displayed on this report is compiled from pharmacy submissions to the Department, and accurately reflects the information as submitted by the pharmacies. This report was requested by: Sonia Huerta | Reference #: [id number] There are no results for the search terms that you entered. Exam Limitations: Other (Arrived sedated w/ resp 18. Easily arousable. Exam began after allowing to sleep for 4 hours while being closely monitored. .) - Ebola screening Have you traveled outside of the country in the last 21 days: No (N) Have you had contact with anyone from an Ebola affected area: No Do you have a fever: No - Review of Systems Constitutional: Chills EENT: reports: No Symptoms Reported, Nose Congestion Respiratory: reports: No Symptoms reported Cardiac: reports: No Symptoms Reported GI: reports: No Symptoms Reported : reports: No Symptoms Reported Musculoskeletal: reports: Back Pain Integumentary: reports: Bruising, Lesions (States picks skin on face and body) Neuro: reports: No Symptoms reported Endocrine: reports: No Symptoms Reported Hematology: reports: Other (HIV +) Psychiatric: reports: Agitated, Depressed (Denies thoughts of harming self or others.) Patient History - Patient Medical History Hx Asthma: No Hx Chronic Obstructive Pulmonary Disease (COPD): No Hx Cancer: No Hx Cardiac Disorders: No Hx Hypertension: No Hx Seizures: Yes (last one month - drug related) Hx Diabetes: No Hx Gastrointestinal Disorders: No Hx Genitourinary Disorders: No Hx Sexually Transmitted Disorders: No Hx Renal Disease (ESRD): No Hx Human Immunodeficiency Virus (HIV): Yes (no treatment or care x 3 years) Hx Hepatitis C: Yes (not treated) Hx Depression: Yes (history of being hospitalized years ago) Hx Suicide Attempt: Yes (long time) Hx Bipolar Disorder: Yes Hx Schizophrenia: Yes (sometimes hears voices) - Patient Surgical History Past Surgical History: No Hx Neurologic Surgery: No Hx Cataract Extraction: No Hx Cardiac Surgery: No Hx Lung Surgery: No Hx Breast Surgery: No Hx Breast Biopsy: No Hx Abdominal Surgery: No Hx Appendectomy: No Hx Cholecystectomy: No Hx Genitourinary Surgery: No Hx Section: No Hx Orthopedic Surgery: No Anesthesia Reaction: No - PPD History Previous Implant?: Yes Documented Results: Negative w/o proof Implanted On Prior [facility] Admission?: Yes Date: 05/18/17 PPD to be Administered?: Yes - Smoking Cessation Smoking history: Current every day smoker Aproximately how many cigarettes per day: 4 Hx Chewing Tobacco Use: No Initiated information on smoking cessation: Yes 'Breaking Loose' booklet given: 12/26/18 - Substance & Tx. History Hx Alcohol Use: No Hx Substance Use: Yes Substance Use Type: Cocaine, Heroin - Substances abused Heroin Substance route: Injection Frequency: Daily Amount used: 1gram Age of first use: 16 Date of last use: 12/26/18 Cocaine Substance route: Injection Frequency: Daily Amount used: $20 Age of first use: 27 Date of last use: 12/26/18 Family Disease History - Family Disease History Family Disease History: Other: Father (no contact), Mother (living, no contact) , Brother (none), Sister (none), Son (3 sons - in [place] - healthy), Daughter ( 2 daughters -[place] - healthy) Admission Physical Exam [facility] - Vital Signs Vital Signs: Vital Signs - 24 hr 12/26/18 15:12 Temperature 98 F Pulse Rate 72 Respiratory 18 Rate Blood Pressure 125/86 - Physical General Appearance: Yes: Nourished, Mild Distress, Tremorous (Slight hand tremors), Irritable, Other (Sedated) HEENTM: Yes: Normocephalic, NATALIYA (Pupils = 6 mm), Pharynx Normal Respiratory: Yes: Lungs Clear, Normal Breath Sounds, No Respiratory Distress Neck: Yes: No masses,lesions,Nodules, Supple Breast: Yes: Breast Exam Deferred Cardiology: Yes: Regular Rhythm, Regular Rate, S1, S2 Abdominal: Yes: Non Tender, Soft, Increased Bowel Sounds Genitourinary: Yes: Within Normal Limits Back: Yes: Normal Inspection Musculoskeletal: Yes: full range of Motion, Other (Gait unsteady) Extremities: Yes: Normal Capillary Refill, Normal Range of Motion, Tremors ( mild tremors), Other (OLd (R) thumb abnormality) Neurological: Yes: Motor Strength 5/5, Other (Easily arousable) Integumentary: Yes: Dry (Decreased skin turgor), Warm, Track Santana (Old and new track santana on both arms and legs.), Other (ecchimotic/bruising r/t IVDU) Lymphatic: Yes: Within Normal Limits - Diagnostic (1) Cocaine abuse Current Visit: Yes Status: Chronic (2) HIV (human immunodeficiency virus infection) Current Visit: Yes Status: Chronic Qualifiers: HIV symptom status: unspecified Qualified Code(s): B20 - Human immunodeficiency virus [HIV] disease (3) History of seizure Current Visit: Yes Status: Chronic Comment: None for 1 year (4) Nicotine dependence Current Visit: Yes Status: Chronic Qualifiers: Nicotine product type: cigarettes Substance use status: uncomplicated Qualified Code(s): F17.210 - Nicotine dependence, cigarettes, uncomplicated (5) Opioid dependence with withdrawal Current Visit: Yes Status: Acute (6) Dehydration Current Visit: Yes Status: Acute Cleared for Admission [facility] - Detox or Rehab [facility] Level of Care: Medically Managed Detox Regimen/Protocol: Methadone Breathalyzer - Breathalyzer Breathalyzer: 0 POC Urine test - Test device test lot number: [id number] Expiration date: 05/21/20 - Control test control: Yes - Result Urine Test Results: Negative - NO line present Urine Drug Screen - Test Device Lot number: [id number] Expiration date: 08/20/20 - Control Is test valid?: Yes - Results Drug screen NEGATIVE: No Urine drug screen results: THC-Marijuana, SINCERE-Cocaine, FEN-Fentanyl, MOP-Opiates , MTD-Methadone, BZO-Benzodiazepines Inpatient Rehab Admission - Rehab Decision to Admit Inpatient rehab admission?: No"
[2018-12-26] MEDS ORDERED: MAGNESIUM CITRATE 300 ML BOTTLE PO PRN (21:49)
[2018-12-26] MEDS ORDERED: BISMUTH SUBSALICYLATE 524 MG/30 ML UD PO PRN (21:49)
[2018-12-26] MEDS ORDERED: MENTHOL/PHENOL 1 EACH UD MM PRN (21:49)
[2018-12-26] MEDS ORDERED: IBUPROFEN 400 MG TABLET (FP) PO PRN (21:49)
[2018-12-26] MEDS ORDERED: guaiFENesin 200 MG/10 ML 10 ML UNIT-DOSE CUPS PO PRN (21:49)
[2018-12-26] MEDS ORDERED: MAG HYDROX/AL HYDROX/SIMETH 30 ML UNIT-DOSE CUP PO PRN (21:49)
[2018-12-26] MEDS ORDERED: METHOCARBAMOL 500 MG TABLET PO PRN (21:49)
[2018-12-26] MEDS ORDERED: ACETAMINOPHEN 325 MG TABLET (FP) PO PRN ×2 (21:49)
[2018-12-26] MEDS ORDERED: NICOTINE POLACRILEX 2 MG GUM BUC PRN (21:49)
[2018-12-26] MEDS ORDERED: MELATONIN 5 MG TABLETS PO PRN (21:49)
[2018-12-26] MEDS ORDERED: MAGNESIUM HYDROX 2400MG/30ML ORAL SUSPENSION 30 ML CUP PO PRN (21:49)
[2018-12-26] MEDS: THIAMINE HCL 100 MG TABLET (FP) PO SCH (23:45)
[2018-12-27] MEDS: diazePAM 5 MG TABLET PO PRN ×3 (08:51→22:40)
[2018-12-27] MEDS ORDERED: METHADONE HCL 10 MG TABLET (FOR DETOX USE ONLY) PO ONE ×2 (10:00→23:00)
[2018-12-27] MEDS: PRENATAL VITAMINS W/ FOLIC ACID TABLET (FP) PO SCH (10:02)
[2018-12-27] MEDS: BACITRACIN 0.9 GM PACKET TP SCH (10:02)
[2018-12-27] MEDS: NICOTINE 7 MG/24 HOURS TOPICAL PATCH TD SCH (10:04)
[2018-12-27 10:13] LABS: HEMATOCRIT 36.9 % (32.4-45.2); HEMOGLOBIN 11.9 GM/dL (10.7-15.3); MCH 27.1 pg (25.7-33.7); MCHC 32.3 g/dl (32.0-36.0); MEAN CELL VOLUME 83.8 fl (80-96); MEAN PLT VOLUME 8.4 fl (7.5-11.1); PLATELET COUNT 274 K/MM3 (134-434); RBC 4.41 M/mm3 (3.60-5.2); RDW 16.5 % (11.6-15.6); WHITE BLOOD COUNT 3.5 K/mm3 (4.0-10.0)
[2018-12-27 10:23] LABS: ALBUMIN 2.8 g/dl (3.4-5.0); ALK PHOS 105 U/L (45-117); ANION GAP 2 MMOL/L (8-16); BILIRUBIN,TOTAL 0.2 mg/dL (0.2-1); BLOOD UREA NITROGEN 12 mg/dL (7-18); CHLORIDE 105 mmol/L (98-107); CO2 29 mmol/L (21-32); CREATININE 0.9 mg/dL (0.55-1.3); GLUCOSE,RANDOM 96 mg/dL (74-106); POTASSIUM 4.3 mmol/L (3.5-5.1); SGOT/AST 51 U/L (15-37); SGPT/ALT 44 U/L (13-61); SODIUM 136 mmol/L (136-145); TOT PROT 8.9 g/dl (6.4-8.2)
[2018-12-27] MEDS ORDERED: PROCHLORPERAZINE MALEATE 5 MG TABLET PO PRN (12:29)
--- NOTE | 2018-12-27 12:29 | PN ---
BHS COWS - Scale Resting Pulse: 0= [place] 80 or Below Sweatin= Chills/Flushing Restless Observation: 1= Difficult to Sit Still Pupil Size: 0= Normal to Room Light Bone or Joint Aches: 0= None Runny Nose/ Eye Tearin= None GI Upset > 30mins: 2= Nausea/Diarrhea Tremor Observation of Outstretched Hands: 2= Slight Tremor Visible Yawning Observation: 1= 1-2x During Session Anxiety or Irritability: 2=Irritable/Anxious Goose Flesh Skin: 3=Piloerection COWS Score: 12 BHS Progress Note (SOAP) Subjective: Fatigue, Nausea, Tremors, Anxious, Sweating. Objective: PATIENT A & O X 3, OBSERVED AMBULATING ON UNIT. IN NO ACUTE DISTRESS. 12/27/18 12:27 Vital Signs Temperature 97.3 F L 12/27/18 09:21 Pulse Rate 76 12/27/18 09:21 Respiratory Rate 16 12/27/18 09:21 Blood Pressure 134/85 12/27/18 09:21 O2 Sat by Pulse Oximetry (%) Laboratory Tests 12/27/18 12/27/18 12/27/18 07:00 07:00 07:00 WBC 3.5 L RBC 4.41 Hgb 11.9 Hct 36.9 MCV 83.8 MCH 27.1 MCHC 32.3 RDW 16.5 H Plt Count 274 MPV 8.4 Sodium 136 Potassium 4.3 Chloride 105 Carbon Dioxide 29 Anion Gap 2 L BUN 12 Creatinine 0.9 Creat Clearance w eGFR 69.35 Random Glucose 96 Calcium 9.0 Total Bilirubin 0.2 AST 51 H ALT 44 Alkaline Phosphatase 105 Total Protein 8.9 H Albumin 2.8 L RPR Titer Nonreactive LABS NOTED. Assessment: 12/27/18 12:28 WITHDRAWAL SYMPTOMS. LEUKOPENIA. 12/27/18 12:28 Plan: CONTINUE DETOX. PRN COMPAZINE PO FOR NAUSEA.
[2018-12-27] MEDS: cloNIDine HCL 0.1 MG TABLET PO PRN (15:21)
--- NOTE | 2018-12-27 15:37 | EKG ---
Test Reason : Blood Pressure : / mmHG Vent. Rate : 070 BPM Atrial Rate : 070 BPM P-R Int : 208 ms QRS Dur : 092 ms QT Int : 426 ms P-R-T Axes : 043 009 015 degrees QTc Int : 460 ms NORMAL SINUS RHYTHM NORMAL ECG WHEN COMPARED WITH ECG OF 16-MAY-2017 13:42, NO SIGNIFICANT CHANGE WAS FOUND Confirmed by BETHANY DYE MD ([id number]) on 12/27/2018 3:37:21 PM Referred By: CHERELLE LANDAVERDE Confirmed By:BETHANY DYE MD
[2018-12-27 17:31] LABS: EPI CELLS 1.3 /HPF (0-5); URINE APPEARANCE TURBID; URINE BILIRUBIN NEGATIVE (NEGATIVE); URINE CASTS 10 /hpf (0-8); URINE COLOR YELLOW; URINE GLUCOSE (UA) NEGATIVE (NEGATIVE); URINE KETONE TRACE (NEGATIVE); URINE LEUK ESTERASE NEGATIVE (NEGATIVE); URINE NITRITE NEGATIVE (NEGATIVE); URINE PROTEIN 1+ (NEGATIVE); URINE UROBILINOGEN 0.2 mg/dL (0.2-1.0); URINE WBC 1 /hpf (0-5)
[2018-12-27 18:27] LABS: URINE RBC 10 /hpf (0-4)
[2018-12-27 18:28] LABS: URINE CRYSTALS CALCIUM OXALATE 2+ /hpf
[2018-12-27] MEDS: THIAMINE HCL 100 MG TABLET (FP) PO SCH (22:35)
--- NOTE | 2018-12-28 09:16 | PN ---
S COWS - Scale Resting Pulse: 0= [place] 80 or Below Sweatin= Chills/Flushing Restless Observation: 1= Difficult to Sit Still Pupil Size: 1= Pupils >than Normal Bone or Joint Aches: 2= Severe Diffuse Aches Runny Nose/ Eye Tearin= Runny Nose/Eyes GI Upset > 30mins: 2= Nausea/Diarrhea Tremor Observation of Outstretched Hands: 2= Slight Tremor Visible Yawning Observation: 1= 1-2x During Session Anxiety or Irritability: 2=Irritable/Anxious Goose Flesh Skin: 0=Smooth Skin COWS Score: 14 S Progress Note (SOAP) Subjective: alert,irritable,anxious,interrupted sleep,tremor,pain in the body and back Objective: 12/28/18 09:14 Vital Signs Temperature 98.1 F 12/28/18 07:44 Pulse Rate 73 12/28/18 07:44 Respiratory Rate 18 12/28/18 07:44 Blood Pressure 129/98 12/28/18 07:44 O2 Sat by Pulse Oximetry (%) Laboratory Last Values WBC 3.5 K/mm3 (4.0-10.0) L 12/27/18 07:00 RBC 4.41 M/mm3 (3.60-5.2) 12/27/18 07:00 Hgb 11.9 GM/dL (10.7-15.3) 12/27/18 07:00 Hct 36.9 % (32.4-45.2) 12/27/18 07:00 MCV 83.8 fl (80-96) 12/27/18 07:00 MCH 27.1 pg (25.7-33.7) 12/27/18 07:00 MCHC 32.3 g/dl (32.0-36.0) 12/27/18 07:00 RDW 16.5 % (11.6-15.6) H 12/27/18 07:00 Plt Count 274 K/MM3 (134-434) 12/27/18 07:00 MPV 8.4 fl (7.5-11.1) 12/27/18 07:00 Sodium 136 mmol/L (136-145) 12/27/18 07:00 Potassium 4.3 mmol/L (3.5-5.1) 12/27/18 07:00 Chloride 105 mmol/L (98-107) 12/27/18 07:00 Carbon Dioxide 29 mmol/L (21-32) 12/27/18 07:00 Anion Gap 2 MMOL/L (8-16) L 12/27/18 07:00 BUN 12 mg/dL (7-18) 12/27/18 07:00 Creatinine 0.9 mg/dL (0.55-1.3) 12/27/18 07:00 Creat Clearance w eGFR 69.35 (>60) 12/27/18 07:00 Random Glucose 96 mg/dL (74-106) 12/27/18 07:00 Calcium 9.0 mg/dL (8.5-10.1) 12/27/18 07:00 Total Bilirubin 0.2 mg/dL (0.2-1) 12/27/18 07:00 AST 51 U/L (15-37) H 12/27/18 07:00 ALT 44 U/L (13-61) 12/27/18 07:00 Alkaline Phosphatase 105 U/L (45-117) 12/27/18 07:00 Total Protein 8.9 g/dl (6.4-8.2) H 12/27/18 07:00 Albumin 2.8 g/dl (3.4-5.0) L 12/27/18 07:00 Urine Color Yellow 12/26/18 23:00 Urine Appearance Turbid 12/26/18 23:00 Urine pH 5.0 (5.0-8.0) D 12/26/18 23:00 Ur Specific [place] 1.029 (1.010-1.035) 12/26/18 23:00 Urine Protein 1+ (NEGATIVE) H 12/26/18 23:00 Urine Glucose (UA) Negative (NEGATIVE) 12/26/18 23:00 Urine Ketones Trace (NEGATIVE) H 12/26/18 23:00 Urine Blood Negative (NEGATIVE) 12/26/18 23:00 Urine Nitrite Negative (NEGATIVE) 12/26/18 23:00 Urine Bilirubin Negative (NEGATIVE) 12/26/18 23:00 Urine Urobilinogen 0.2 mg/dL (0.2-1.0) 12/26/18 23:00 Ur Leukocyte Esterase Negative (NEGATIVE) 12/26/18 23:00 Urine WBC (Auto) 1 /hpf (0-5) 12/26/18 23:00 Urine RBC (Auto) 10 /hpf (0-4) 12/26/18 23:00 Urine Casts (Auto) 10 /hpf (0-8) 12/26/18 23:00 U Epithel Cells (Auto) 1.3 /HPF (0-5) 12/26/18 23:00 Urine Crystals (Auto) Calcium oxalate 2+ /hpf 12/26/18 23:00 Urine Bacteria (Auto) 13.0 /hpf (NEGATIVE) 12/26/18 23:00 RPR Titer Nonreactive (NONREACTIVE) 12/27/18 07:00 Assessment: 12/28/18 09:15 withdrawal symptom Plan: continue detox
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
[2018-12-28] MEDS ORDERED: METHADONE HCL 10 MG TABLET (FOR DETOX USE ONLY) PO ONE (10:00)
[2018-12-28] MEDS: NICOTINE 7 MG/24 HOURS TOPICAL PATCH TD SCH (10:14)
[2018-12-28] MEDS: BACITRACIN 0.9 GM PACKET TP SCH (10:14)
[2018-12-28] MEDS: PRENATAL VITAMINS W/ FOLIC ACID TABLET (FP) PO SCH (10:14)
[2018-12-28] MEDS: diazePAM 5 MG TABLET PO PRN ×2 (10:17→16:47)
[2018-12-28] MEDS: hydrOXYzine PAMOATE 50 MG CAPSULE (FP) PO PRN (17:55)
[2018-12-28] MEDS: cloNIDine HCL 0.1 MG TABLET PO PRN (19:51)
[2018-12-28] MEDS: THIAMINE HCL 100 MG TABLET (FP) PO SCH (23:41)
[2018-12-28] MEDS: QUEtiapine FUMARATE 100 MG TABLET (FP) PO SCH (23:41)
[2018-12-29] MEDS: hydrOXYzine PAMOATE 50 MG CAPSULE (FP) PO PRN ×2 (08:29→22:26)
[2018-12-29] MEDS: cloNIDine HCL 0.1 MG TABLET PO PRN (08:29)
[2018-12-29] MEDS ORDERED: NAPROXEN 500 MG TABLET (FP) PO ONE (08:35)
[2018-12-29] MEDS ORDERED: BACLOFEN 10 MG TABLET (FP) PO ONE (08:35)
[2018-12-29] MEDS ORDERED: METHADONE HCL 10 MG TABLET (FOR DETOX USE ONLY) PO ONE (10:00)
[2018-12-29] MEDS: BACITRACIN 0.9 GM PACKET TP SCH (10:11)
[2018-12-29] MEDS: PRENATAL VITAMINS W/ FOLIC ACID TABLET (FP) PO SCH (10:11)
[2018-12-29] MEDS: NICOTINE 7 MG/24 HOURS TOPICAL PATCH TD SCH (10:11)
[2018-12-29] MEDS: LIDOCAINE 5% TOPICAL PATCH TP SCH (11:04)
[2018-12-29] MEDS: diazePAM 5 MG TABLET PO PRN ×2 (11:11→22:28)
[2018-12-29] MEDS ORDERED: cloNIDine HCL 0.1 MG TABLET PO PRN (13:19)
--- NOTE | 2018-12-29 13:44 | PN ---
BHS Progress Note (SOAP) Subjective: pt states he is sweating today- thinks he is having withdrawal sx. O: Vital Signs - 24 hr 12/28/18 12/28/18 12/29/18 17:14 21:44 00:30 Temperature 97.2 F L 97.7 F Pulse Rate 72 91 H Respiratory 18 18 18 Rate Blood Pressure 103/75 120/89 12/29/18 12/29/18 12/29/18 03:30 06:59 09:24 Temperature 96.1 F L 98.3 F Pulse Rate 69 101 H Respiratory 16 16 18 Rate Blood Pressure 116/74 120/99 tachy Laboratory Tests 12/26/18 12/27/18 12/27/18 23:00 07:00 07:00 WBC 3.5 L RBC 4.41 Hgb 11.9 Hct 36.9 MCV 83.8 MCH 27.1 MCHC 32.3 RDW 16.5 H Plt Count 274 MPV 8.4 Sodium 136 Potassium 4.3 Chloride 105 Carbon Dioxide 29 Anion Gap 2 L BUN 12 Creatinine 0.9 Creat Clearance w eGFR 69.35 Random Glucose 96 Calcium 9.0 Total Bilirubin 0.2 AST 51 H ALT 44 Alkaline Phosphatase 105 Total Protein 8.9 H Albumin 2.8 L Urine Color Yellow Urine Appearance Turbid Urine pH 5.0 D Ur Specific [place] 1.029 Urine Protein 1+ H Urine Glucose (UA) Negative Urine Ketones Trace H Urine Blood Negative Urine Nitrite Negative Urine Bilirubin Negative Urine Urobilinogen 0.2 Ur Leukocyte Esterase Negative Urine WBC (Auto) 1 Urine RBC (Auto) 10 Urine Casts (Auto) 10 U Epithel Cells (Auto) 1.3 Urine Crystals (Auto) Calcium oxalate 2+ Urine Bacteria (Auto) 13.0 RPR Titer 12/27/18 07:00 WBC RBC Hgb Hct MCV MCH MCHC RDW Plt Count MPV Sodium Potassium Chloride Carbon Dioxide Anion Gap BUN Creatinine Creat Clearance w eGFR Random Glucose Calcium Total Bilirubin AST ALT Alkaline Phosphatase Total Protein Albumin Urine Color Urine Appearance Urine pH Ur Specific [place] Urine Protein Urine Glucose (UA) Urine Ketones Urine Blood Urine Nitrite Urine Bilirubin Urine Urobilinogen Ur Leukocyte Esterase Urine WBC (Auto) Urine RBC (Auto) Urine Casts (Auto) U Epithel Cells (Auto) Urine Crystals (Auto) Urine Bacteria (Auto) RPR Titer Nonreactive a/p: continue detox protocol: pt has prn meds- clonidine/vistaril for Sx relief 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
[2018-12-29] MEDS: BACLOFEN 10 MG TABLET (FP) PO SCH ×2 (14:29→22:25)
[2018-12-29] MEDS: THIAMINE HCL 100 MG TABLET (FP) PO SCH (22:25)
[2018-12-29] MEDS: LIDOCAINE PATCH REMOVAL MC SCH (22:25)
[2018-12-29] MEDS: QUEtiapine FUMARATE 100 MG TABLET (FP) PO SCH (22:25)
[2018-12-30] MEDS: BACLOFEN 10 MG TABLET (FP) PO SCH ×3 (07:00→22:11)
[2018-12-30] MEDS: diazePAM 5 MG TABLET PO PRN (07:10)
[2018-12-30] MEDS: hydrOXYzine PAMOATE 50 MG CAPSULE (FP) PO PRN ×3 (07:10→16:21)
[2018-12-30] MEDS ORDERED: NAPROXEN 500 MG TABLET (FP) PO ONE (08:34)
--- NOTE | 2018-12-30 09:45 | PN ---
BHS Progress Note (SOAP) Subjective: alert,irritable,anxious,interrupted sleep,pain in the body and back Objective: 12/30/18 09:44 Vital Signs Temperature 97.9 F 12/30/18 09:02 Pulse Rate 100 H 12/30/18 09:02 Respiratory Rate 18 12/30/18 09:02 Blood Pressure 104/80 12/30/18 09:02 O2 Sat by Pulse Oximetry (%) Assessment: 12/30/18 09:44 withdrawal symptom Plan: continue detox
[2018-12-30] MEDS ORDERED: METHADONE HCL 10 MG TABLET (FOR DETOX USE ONLY) PO ONE (10:00)
[2018-12-30] MEDS: LIDOCAINE 5% TOPICAL PATCH TP SCH (10:08)
[2018-12-30] MEDS: PRENATAL VITAMINS W/ FOLIC ACID TABLET (FP) PO SCH (10:10)
[2018-12-30] MEDS: BACITRACIN 0.9 GM PACKET TP SCH (10:10)
[2018-12-30] MEDS: NICOTINE 7 MG/24 HOURS TOPICAL PATCH TD SCH (10:13)
[2018-12-30] MEDS: cloNIDine HCL 0.1 MG TABLET PO SCH ×2 (10:14→22:11)
[2018-12-30] MEDS: QUEtiapine FUMARATE 100 MG TABLET (FP) PO SCH (22:11)
[2018-12-30] MEDS: NAPROXEN 500 MG TABLET (FP) PO SCH (22:11)
[2018-12-30] MEDS: THIAMINE HCL 100 MG TABLET (FP) PO SCH (22:11)
[2018-12-30] MEDS: LIDOCAINE PATCH REMOVAL MC SCH (22:12)
[2018-12-31] MEDS: METHADONE HCL 5 MG TABLET (FOR DETOX USE ONLY) PO ONE ×2 (07:20→07:48)
[2018-12-31] MEDS: BACLOFEN 10 MG TABLET (FP) PO SCH (07:20)
--- NOTE | 2018-12-31 08:49 | DS ---
[facility] Detox Discharge Summary Admission Date: 12/26/18 Discharge Date: 12/31/18 - History Present History: Alcohol Dependence, Cocaine Dependence, Opioid Dependence - Physical Exam Results Vital Signs: Vital Signs Temperature 97.3 F L 12/31/18 06:00 Pulse Rate 69 12/31/18 06:00 Respiratory Rate 18 12/31/18 06:30 Blood Pressure 113/71 12/31/18 06:00 O2 Sat by Pulse Oximetry (%) - Treatment Hospital Course: Detox Protocol Followed, Detoxed Safely, Responded well, Discharged Condition Good, Rehab Referral Accepted - Medication Discharge Medications: Ambulatory Orders NK [No Known Home Medication] 12/26/18 - Diagnosis (1) Cocaine dependence Current Visit: Yes Status: Chronic Qualifiers: Substance use status: uncomplicated Qualified Code(s): F14.20 - Cocaine dependence, uncomplicated (2) Dehydration Current Visit: Yes Status: Acute (3) Opioid dependence with withdrawal Current Visit: Yes Status: Chronic (4) Substance-induced anxiety disorder Current Visit: Yes Status: Acute (5) Substance-induced sleep disorder Current Visit: Yes Status: Acute (6) Bipolar II disorder Current Visit: Yes Status: Chronic (7) HIV (human immunodeficiency virus infection) Current Visit: Yes Status: Chronic Qualifiers: HIV symptom status: unspecified Qualified Code(s): B20 - Human immunodeficiency virus [HIV] disease (8) History of seizure Current Visit: Yes Status: Chronic (9) Nicotine dependence Current Visit: Yes Status: Chronic Qualifiers: Nicotine product type: cigarettes Substance use status: uncomplicated Qualified Code(s): F17.210 - Nicotine dependence, cigarettes, uncomplicated (10) Bipolar 1 disorder Current Visit: No Status: Acute (11) Schizophrenia Current Visit: No Status: Acute (12) Alcohol dependence with uncomplicated withdrawal Current Visit: Yes Status: Chronic (13) Hepatitis C Current Visit: No Status: Chronic Qualifiers: Viral hepatitis chronicity: chronic Hepatic coma status: without hepatic coma Qualified Code(s): B18.2 - Chronic viral hepatitis C - AMA Did Patient Leave Against Medical Advice: No ([facility])
[2018-12-31 09:16] VITALS: BP 118/79; PULSE 97; TEMP 97.6
[2018-12-31] MEDS: NAPROXEN 500 MG TABLET (FP) PO SCH (10:56)
[2018-12-31] MEDS: BACITRACIN 0.9 GM PACKET TP SCH (10:56)
[2018-12-31] MEDS: PRENATAL VITAMINS W/ FOLIC ACID TABLET (FP) PO SCH (10:56)
[2018-12-31] MEDS: cloNIDine HCL 0.1 MG TABLET PO SCH (10:56)
[2018-12-31] MEDS: NICOTINE 7 MG/24 HOURS TOPICAL PATCH TD SCH (10:57)
[2018-12-31] MEDS: LIDOCAINE 5% TOPICAL PATCH TP SCH (10:57)
[2018-12-31] MEDS: hydrOXYzine PAMOATE 50 MG CAPSULE (FP) PO PRN (10:58)
== END 2018-12-31 12:00 | disposition other institution (70) | DRG 773 ==
LOC: YASAS 10:23 → Y6N 22:08
PROVIDERS: ADMIT Surgery; ATTEND Surgery
PROC: HZ2ZZZZ Detoxification Services for Substance Abuse Treatment (ICD-10-PCS; principal; 2018-12-26)
DX: F11.23 Opioid dependence with withdrawal (principal); F10.230 Alcohol dependence with withdrawal, uncomplicated; F14.20 Cocaine dependence, uncomplicated; F17.210 Nicotine dependence, cigarettes, uncomplicated; F19.280 Other psychoactive substance dependence with psychoactive substance-induced anxiety disorder; F19.282 Other psychoactive substance dependence with psychoactive substance-induced sleep disorder; F31.81 Bipolar II disorder; F20.9 Schizophrenia, unspecified; E86.0 Dehydration; B20 Human immunodeficiency virus [HIV] disease; B18.2 Chronic viral hepatitis C; J45.909 Unspecified asthma, uncomplicated; D72.819 Decreased white blood cell count, unspecified; Z86.69 Personal history of other diseases of the nervous system and sense organs; Z88.0 Allergy status to penicillin; Z91.5 Personal history of self-harm
CPT/HCPCS: 36415; 80053; 81003; 85027; 86593; 93005; 93010; J0475; J0735

== ENCOUNTER 2018-12-31 11:33 | Inpatient (IN) | payer OTHER ==
[2018-12-31 12:20] VITALS: BP 114/77; PULSE 89; TEMP 98.2
[2018-12-31] MEDS ORDERED: MAGNESIUM HYDROX 2400MG/30ML ORAL SUSPENSION 30 ML CUP PO PRN (14:39)
[2018-12-31] MEDS ORDERED: MAGNESIUM CITRATE 300 ML BOTTLE PO PRN (14:39)
[2018-12-31] MEDS ORDERED: P-EPHED 60MG/TRIPROLIDI 2.5MG TABLET PO PRN (14:39)
[2018-12-31] MEDS ORDERED: ACETAMINOPHEN 325 MG TABLET (FP) PO PRN (14:39)
[2018-12-31] MEDS ORDERED: guaiFENesin 200 MG/10 ML 10 ML UNIT-DOSE CUPS PO PRN (14:39)
[2018-12-31] MEDS ORDERED: hydrOXYzine PAMOATE 25 MG CAPSULE (FP) PO PRN (14:39)
[2018-12-31] MEDS ORDERED: LOPERAMIDE HCL 2 MG CAPSULE PO PRN (14:39)
[2018-12-31] MEDS ORDERED: IBUPROFEN 400 MG TABLET (FP) PO PRN (14:39)
[2018-12-31] MEDS ORDERED: NICOTINE POLACRILEX 2 MG GUM BUC PRN (14:39)
[2018-12-31] MEDS ORDERED: MENTHOL/PHENOL 1 EACH UD MM PRN (14:39)
[2018-12-31] MEDS ORDERED: MAG HYDROX/AL HYDROX/SIMETH 30 ML UNIT-DOSE CUP PO PRN (14:39)
--- NOTE | 2018-12-31 14:39 | HP ---
HENNA BUSTAMANTE Rehab Assess/Revision - Admission History Admitted to Rehab from: [facility] Date of Admission to Rehab: 12/31/18 - Vital signs Vital Signs: Vital Signs Period Temp Pulse Resp BP Sys/Gomez Pulse Ox Last 24 Hr 98.2 F 89 18 114/77 - Findings Detox History & Physical reviewed: Yes Concur with findings: Yes Comments/Additional Findings: for rehab as protocol Inpatient Rehab Admission - Rehab Decision to Admit Inpatient rehab admission?: Yes - Initial Determination Are CD services needed?: Yes Free of communicable disease: Yes Not in need of hospitalization: Yes - Rehab Admission Criteria Previous failed treatment: Yes Poor recovery environment: Yes Comorbidities: Yes Lacks judgement: No Patient is meeting Inpatient Rehab admission criteria:: Yes
[2018-12-31] MEDS ORDERED: ALBUTEROL SO4 8 GM HFA INHALER IH PRN (14:43)
[2018-12-31] MEDS ORDERED: NICOTINE 7 MG/24 HOURS TOPICAL PATCH TD SCH (15:30)
[2018-12-31] MEDS ORDERED: THIAMINE HCL 100 MG TABLET (FP) PO SCH (22:00)
[2018-12-31] MEDS ORDERED: QUEtiapine FUMARATE 100 MG TABLET (FP) PO SCH (22:00)
[2018-12-31] MEDS ORDERED: NAPROXEN 500 MG TABLET (FP) PO SCH (22:00)
[2018-12-31] MEDS ORDERED: BUDESONIDE/FORMETEROL FUMARATE 160/4.5 mcg INHALER IH SCH (22:00)
[2018-12-31] MEDS ORDERED: MELATONIN 5 MG TABLETS PO PRN (22:00)
[2019-01-01] MEDS ORDERED: LIDOCAINE 5% TOPICAL PATCH TP SCH (10:00)
[2019-01-01] MEDS ORDERED: PRENATAL VITAMINS W/ FOLIC ACID TABLET (FP) PO SCH (10:00)
== END 2018-12-31 19:00 | disposition left against medical advice (07) | DRG 770 ==
LOC: YASAS 11:33 → Y3E 11:34
PROVIDERS: ADMIT Neuromusculoskeletal Medicine & OMM; ATTEND Neuromusculoskeletal Medicine & OMM
PROC: HZ42ZZZ Group Counseling for Substance Abuse Treatment, Cognitive-Behavioral (ICD-10-PCS; principal; 2018-12-31)
DX: F11.20 Opioid dependence, uncomplicated (principal); F14.20 Cocaine dependence, uncomplicated; F17.210 Nicotine dependence, cigarettes, uncomplicated; E86.0 Dehydration; B20 Human immunodeficiency virus [HIV] disease; Z86.69 Personal history of other diseases of the nervous system and sense organs; Z88.0 Allergy status to penicillin; Z91.5 Personal history of self-harm

== ENCOUNTER 2019-04-12 17:01 | Inpatient (IN) | payer OTHER ==
--- NOTE | 2019-04-12 21:10 | HP ---
COWS - Scale Resting Pulse: 0= [place] 80 or Below Sweatin= Chills/Flushing Restless Observation: 1= Difficult to Sit Still Pupil Size: 0= Normal to Room Light Bone or Joint Aches: 1= Mild Discomfort Runny Nose/ Eye Tearin= Nasal Congestion GI Upset > 30mins: 1= Stomach Cramp Tremor Observation: 0= None Yawning Observation: 1= 1-2x During Session Anxiety or Irritability: 2=Irritable/Anxious Goose Flesh Skin: 0=Smooth Skin COWS Score: 8 CIWA Score Nausea/Vomitin-No Nausea/No Vomiting Muscle Tremors: None Anxiety: 4-Mod. Anxious/Guarded Agitation: 4-Moderately Restless Paroxysmal Sweats: 3 Orientation: 3-Disoriented Date>2 days Tacttile Disturbances: 3-Moderate Itch/Numb/Burn Auditory Disturbances: 0-None Visual Disturbances: 2-Mild Sensitivity Headache: 0-None Present CIWA-Ar Total Score: 19 - [facility] Admission for Medically Managed Detox: Requires at least one of the followin. CIWA greater than 12 2. Seizures within the past 24 hours 3. Delirium tremens within the past 24 hours 4. Hallucinations within the past 24 hours 5. Acute intervention needed for co occurring medical disorder 6. Acute intervention needed for co occurring psychiatric disorder 7. Severe withdrawal that cannot be handled at a lower level of care (continued vomiting, continued diarrhea, abnormal vital signs) requiring intravenous medication and/or fluids 8. Patient presents the following: CIWA greater than 12 Admission Criteria Met: Admission criteria met Admission [facility] Chief Complaint: c/o withdrawal sx's seeking detox Allergies/Adverse Reactions: Allergies Allergy/AdvReac Type Severity Reaction Status Date / Time Penicillins Allergy Verified 12/26/18 15:12 History of Present Illness: 38 Y.O. FEMALE WITH POLYSUBSTANCE ABUSE HERE FOR BENZO AND HEROIN DETOX. CLIENT PRESENTS WITH C/O WITHDRAWAL SX'S. COWS 8/ CIWA 19. SHE IS SELF REFERRED. LAST HERE 12/2018. STATES SHE RELAPSED SOON AFTER DC. DENIES ANY INPATIENT TXMENT SINCE. REPORTS LONGEST CLEAN TIME 13 YEARS SELF MAINTAINED. HX/O SEIZURES R/T DRUGS AND SHE ALSO REPORTS DRUG OVER DOSE. SHE IS AN IVDU. 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 PMHX- HIV, HEP C NOT TX'ED PSYCH - DEPRESSION, BIPOLAR Exam Limitations: Other (CLIENT IS VERY DROWSI BUT EASILY AROUSABLE AND IRRITABLE AND RESTLESS) - Ebola screening Have you traveled outside of the country in the last 21 days: No (N) Have you had contact with anyone from an Ebola affected area: No Do you have a fever: No - Review of Systems Constitutional: Chills, Loss of Appetite, Night Sweats, Changes in sleep EENT: reports: Dental Problems (MISSING TEETH) Respiratory: reports: Shortness of Breath (HX ASTHMA) Cardiac: reports: No Symptoms Reported GI: reports: Poor Fluid Intake, Abdominal cramping : reports: No Symptoms Reported Musculoskeletal: reports: Back Pain (CHRONIC) Integumentary: reports: Other (SUPERIFICAL ABRASION TO FACE FROM "PICKING OF THE SKIN") Neuro: reports: Seizure (HX/O) Endocrine: reports: No Symptoms Reported Hematology: reports: No Symptoms Reported Psychiatric: reports: Orientated x3, Agitated (IRRITABLE), Anxious, Depressed ( DENIES SI) Other Systems: Reviewed and Negative Patient History - Patient Medical History Hx Anemia: No Hx Asthma: Yes Hx Chronic Obstructive Pulmonary Disease (COPD): No Hx Cancer: No Hx Cardiac Disorders: No Hx Congestive Heart Failure: No Hx Hypertension: No Hx Hypercholesterolemia: No Hx Pacemaker: No HX Cerebrovascular Accident: No Hx Seizures: Yes (HX/O) Hx Dementia: No Hx Diabetes: No Hx Gastrointestinal Disorders: No Hx Liver Disease: No Hx Genitourinary Disorders: No Hx Sexually Transmitted Disorders: Yes (HIV) Hx Renal Disease (ESRD): No Hx Thyroid Disease: No Hx Human Immunodeficiency Virus (HIV): Yes Hx Hepatitis C: Yes (not treated) Hx Depression: Yes Hx Suicide Attempt: No Hx Bipolar Disorder: Yes Hx Schizophrenia: Yes - Patient Surgical History Past Surgical History: No Hx Neurologic Surgery: No Hx Cataract Extraction: No Hx Cardiac Surgery: No Hx Lung Surgery: No Hx Breast Surgery: No Hx Breast Biopsy: No Hx Abdominal Surgery: No Hx Appendectomy: No Hx Cholecystectomy: No Hx Genitourinary Surgery: No Hx Section: No Hx Orthopedic Surgery: No Anesthesia Reaction: No - PPD History Previous Implant?: Yes Documented Results: Negative w/proof Implanted On Prior R Admission?: Yes Date: 12/28/18 Results: 0mm PPD to be Administered?: No - Reproductive History Patient is a Female of Child Bearing Age (11 -55 yrs old): Yes Last Menstrual Period: 04/12/19 LMP comment: REG Patient : No ([place] [facility] [place] - Smoking Cessation Smoking history: Current every day smoker Have you smoked in the past 12 months: Yes Aproximately how many cigarettes per day: 4 Cigars Per Day: 0 Hx Chewing Tobacco Use: No Initiated information on smoking cessation: Yes 'Breaking Loose' booklet given: 04/12/19 - Substance & Tx. History Hx Alcohol Use: No Hx Substance Use: Yes Substance Use Type: Cocaine, Heroin, Marijuana, Opiates, Tranquilizers Hx Substance Use Treatment: Yes ([facility]) - Substances abused Heroin Substance route: Injection Frequency: Daily Amount used: 1gram Age of first use: 16 Date of last use: 12/26/18 Cocaine Substance route: Injection Frequency: Daily Amount used: $20 Age of first use: 27 Date of last use: 12/26/18 Marijuana/Hashish Substance route: Smoking Frequency: 1-3 times last 30 days Amount used: 2 JOINTS Age of first use: 15 Date of last use: 04/11/19 Benzodiazepine (Klonopin) Other (specify): XANAX Substance route: Oral Frequency: 3-6 times per week Amount used: 12 MG Age of first use: 15 Date of last use: 04/11/19 Family Disease History - Family Disease History Family Disease History: Other: Father (no contact), Mother (living, no contact) , Brother (none), Sister (none), Son (3 sons - in [place] - healthy), Daughter ( 2 daughters -[place] - healthy) Admission Physical Exam [facility] - Vital Signs Vital Signs: Vital Signs - 24 hr 04/12/19 20:30 Pulse Rate 67 Respiratory 20 Rate Blood Pressure 107/80 - Physical General Appearance: Yes: Appropriately Dressed, Disheveled, Mild Distress, Tremorous (FELT), Irritable, Anxious, Other (FREQUENT PERIODS OF DROWSINESS BUT EASILY AROUSABLE) HEENTM: Yes: EOMI, Normocephalic, Normal Voice, NATALIYA, Pharynx Normal, Other ( POOR DENTITION) Respiratory: Yes: Chest Non-Tender, Lungs Clear, Normal Breath Sounds, No Respiratory Distress, No Accessory Muscle Use Neck: Yes: No masses,lesions,Nodules, Supple, Trachea in good position Breast: Yes: Breast Exam Deferred Cardiology: Yes: Regular Rhythm, Regular Rate, S1, S2 Abdominal: Yes: Non Tender, Soft, Increased Bowel Sounds Genitourinary: Yes: Within Normal Limits Back: Yes: Normal Inspection Musculoskeletal: Yes: full range of Motion, Gait Steady Extremities: Yes: Normal Range of Motion, Non-Tender, Tremors Neurological: Yes: Alert (WITH PERIODS OF SLEEPINESS) Integumentary: Yes: Dry, Warm, Pitting Edema (TR EDEMA TO BLE), Track Pacheco, Other (ABRASIONS TO FACE FROM PICKING OF THE SKIN) Lymphatic: Yes: Within Normal Limits - Diagnostic (1) Sedative, hypnotic or anxiolytic dependence with withdrawal, uncomplicated Current Visit: Yes Status: Acute (2) Cannabis abuse, uncomplicated Current Visit: Yes Status: Acute (3) Excoriation (skin-picking) disorder Current Visit: Yes Status: Acute (4) Dehydration Current Visit: Yes Status: Acute (5) Substance-induced anxiety disorder Current Visit: Yes Status: Suspected (6) Substance-induced sleep disorder Current Visit: Yes Status: Suspected (7) Cocaine dependence Current Visit: Yes Status: Acute Qualifiers: Substance use status: uncomplicated Qualified Code(s): F14.20 - Cocaine dependence, uncomplicated (8) HIV (human immunodeficiency virus infection) Current Visit: Yes Status: Chronic Qualifiers: HIV symptom status: unspecified Qualified Code(s): B20 - Human immunodeficiency virus [HIV] disease (9) Hepatitis C Current Visit: Yes Status: Chronic Qualifiers: Viral hepatitis chronicity: chronic Hepatic coma status: without hepatic coma Qualified Code(s): B18.2 - Chronic viral hepatitis C (10) History of seizure Current Visit: Yes Status: Chronic Comment: None for 1 year (11) Nicotine dependence Current Visit: Yes Status: Chronic Qualifiers: Nicotine product type: cigarettes Substance use status: uncomplicated Qualified Code(s): F17.210 - Nicotine dependence, cigarettes, uncomplicated (12) Opioid dependence with withdrawal Current Visit: Yes Status: Acute Cleared for Admission S - Detox or Rehab S Level of Care: Medically Managed Detox Regimen/Protocol: Methadone/Valium Claeared for Rehab Admission: No Breathalyzer - Breathalyzer Breathalyzer: 0 POC Urine test - Test device test lot number: [id number] Expiration date: 05/21/20 - Control test control: Yes - Result Urine Test Results: Negative - NO line present Urine Drug Screen - Test Device Lot number: [id number] Expiration date: 08/20/20 - Control Is test valid?: Yes - Results Drug screen NEGATIVE: No Urine drug screen results: THC-Marijuana, SINCERE-Cocaine, FEN-Fentanyl, MOP-Opiates , MTD-Methadone, BZO-Benzodiazepines Inpatient Rehab Admission - Rehab Decision to Admit Inpatient rehab admission?: No
[2019-04-12] MEDS ORDERED: IBUPROFEN 400 MG TABLET (FP) PO PRN (21:23)
[2019-04-12] MEDS ORDERED: ACETAMINOPHEN 325 MG TABLET (FP) PO PRN ×2 (21:23)
[2019-04-12] MEDS ORDERED: guaiFENesin 200 MG/10 ML 10 ML UNIT-DOSE CUPS PO PRN (21:23)
[2019-04-12] MEDS ORDERED: DICYCLOMINE HCL 10 MG CAPSULE PO PRN (21:23)
[2019-04-12] MEDS ORDERED: MAGNESIUM CITRATE 300 ML BOTTLE PO PRN (21:23)
[2019-04-12] MEDS ORDERED: MAGNESIUM HYDROX 2400MG/30ML ORAL SUSPENSION 30 ML CUP PO PRN (21:23)
[2019-04-12] MEDS ORDERED: MAG HYDROX/AL HYDROX/SIMETH 30 ML UNIT-DOSE CUP PO PRN (21:23)
[2019-04-12] MEDS ORDERED: MENTHOL/PHENOL 1 EACH UD MM PRN (21:23)
[2019-04-12] MEDS ORDERED: ONDANSETRON *ODT* 4 MG TABLET SL PRN (21:23)
[2019-04-12] MEDS ORDERED: BISMUTH SUBSALICYLATE 524 MG/30 ML UD PO PRN (21:23)
[2019-04-12] MEDS ORDERED: MELATONIN 5 MG TABLETS PO PRN (21:23)
[2019-04-12] MEDS ORDERED: P-EPHED 60MG/TRIPROLIDI 2.5MG TABLET PO PRN (21:23)
[2019-04-12] MEDS ORDERED: NICOTINE POLACRILEX 2 MG GUM BUC PRN (21:23)
[2019-04-12 22:34] VITALS: BMI 24.7
[2019-04-12] MEDS: THIAMINE HCL 100 MG TABLET (FP) PO SCH (23:27)
[2019-04-13] MEDS ORDERED: NALOXONE HCL 0.4 MG/ML VIAL IM PRN (04:50)
[2019-04-13] MEDS ORDERED: METHADONE HCL 10 MG TABLET (FOR DETOX USE ONLY) PO ONE (04:50)
[2019-04-13] MEDS: diazePAM 5 MG TABLET PO SCH ×3 (06:28→22:23)
[2019-04-13] MEDS: NICOTINE 14 MG/24 HOURS TOPICAL PATCH TD SCH (10:35)
[2019-04-13] MEDS: PRENATAL VITAMINS W/ FOLIC ACID TABLET (FP) PO SCH (10:35)
[2019-04-13] MEDS: diazePAM 5 MG TABLET PO PRN ×2 (10:35→18:34)
--- NOTE | 2019-04-13 10:46 | PN ---
[facility] CIWA - CIWA Score Nausea/Vomitin-Mild Nausea/No Vomiting Muscle Tremors: 3 Anxiety: 3 Agitation: 2 Paroxysmal Sweats: 2 Orientation: 0-Oriented Tacttile Disturbances: 0-None Auditory Disturbances: 0-None Visual Disturbances: 0-None Headache: 1-Very Mild CIWA-Ar Total Score: 12 BHS COWS - Scale Resting Pulse: 2= [place] 101-120 Sweatin= Chills/Flushing Restless Observation: 3= Extraneous Movement Pupil Size: 1= Pupils >than Normal Bone or Joint Aches: 2= Severe Diffuse Aches Runny Nose/ Eye Tearin= Runny Nose/Eyes GI Upset > 30mins: 2= Nausea/Diarrhea Tremor Observation of Outstretched Hands: 1= Tremor [place], Not Seen Yawning Observation: 1= 1-2x During Session Anxiety or Irritability: 1=Feels Anxious/Irritable Goose Flesh Skin: 0=Smooth Skin COWS Score: 16 S Progress Note (SOAP) Subjective: pt states she is still in withdrawal, cam in aobut 12 hours ago- awaiting medications this morning, c/o chills and stomach cramp O: Vital Signs - 24 hr 04/12/19 04/12/19 04/12/19 20:30 22:31 23:31 Temperature 97.7 F 97.0 F L Pulse Rate 67 67 72 Respiratory 20 20 18 Rate Blood Pressure 107/80 107/80 119/82 04/13/19 04/13/19 04/13/19 00:30 03:30 06:37 Temperature 97.1 F L Pulse Rate 69 Respiratory 18 18 17 Rate Blood Pressure 120/83 04/13/19 09:23 Temperature 97.4 F L Pulse Rate 57 L Respiratory 16 Rate Blood Pressure 130/89 labs pending tremulous, agitated a/p: continue benzo and opioid detox protocols prn meds for withdrawal sx
[2019-04-13 12:15] LABS: HEMOGLOBIN 11.6 GM/dL (10.7-15.3); MCHC 33.2 g/dl (32.0-36.0); MEAN CELL VOLUME 84.5 fl (80-96); MEAN PLT VOLUME 8.7 fl (7.5-11.1); PLATELET COUNT 254 K/MM3 (134-434); RBC 4.15 M/mm3 (3.60-5.2); WHITE BLOOD COUNT 2.8 K/mm3 (4.0-10.0)
[2019-04-13 12:29] LABS: ALBUMIN 2.9 g/dl (3.4-5.0); BILIRUBIN,TOTAL 0.3 mg/dL (0.2-1); BLOOD UREA NITROGEN 13.7 mg/dL (7-18); CALCIUM 8.8 mg/dL (8.5-10.1); CREATININE 0.9 mg/dL (0.55-1.3); POTASSIUM 4.3 mmol/L (3.5-5.1); TOT PROT 8.6 g/dl (6.4-8.2)
[2019-04-13] MEDS: METHOCARBAMOL 500 MG TABLET PO PRN (15:52)
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
[2019-04-13] MEDS: cloNIDine HCL 0.1 MG TABLET PO PRN (18:34)
[2019-04-13] MEDS: QUEtiapine FUMARATE 50 MG TABLET PO SCH (22:23)
[2019-04-13] MEDS: THIAMINE HCL 100 MG TABLET (FP) PO SCH (22:23)
[2019-04-14] MEDS: diazePAM 5 MG TABLET PO SCH ×2 (06:43→17:03)
[2019-04-14] MEDS ORDERED: METHADONE HCL 10 MG TABLET (FOR DETOX USE ONLY) ONE (08:52)
[2019-04-14] MEDS ORDERED: METHADONE HCL 5 MG TABLET (FOR DETOX USE ONLY) ONE (08:53)
[2019-04-14] MEDS: NICOTINE 14 MG/24 HOURS TOPICAL PATCH TD SCH (09:36)
[2019-04-14] MEDS: diazePAM 5 MG TABLET PO PRN (09:36)
[2019-04-14] MEDS: PRENATAL VITAMINS W/ FOLIC ACID TABLET (FP) PO SCH (09:36)
[2019-04-14] MEDS ORDERED: METHADONE (DETOX) 20 MG, METHADONE (DETOX) 5 MG PO ONE (10:00)
[2019-04-14] MEDS: cloNIDine HCL 0.1 MG TABLET PO PRN ×2 (12:16→18:27)
[2019-04-14] MEDS: hydrOXYzine PAMOATE 25 MG CAPSULE (FP) PO PRN ×2 (12:19→18:27)
[2019-04-14] MEDS: METHOCARBAMOL 500 MG TABLET PO PRN ×2 (12:20→17:41)
--- NOTE | 2019-04-14 13:36 | PN ---
[facility] CIWA - CIWA Score Nausea/Vomitin-Mild Nausea/No Vomiting Muscle Tremors: 3 Anxiety: 2 Agitation: 2 Paroxysmal Sweats: 1-Minimal Palms Moist Orientation: 0-Oriented Tacttile Disturbances: 0-None Auditory Disturbances: 0-None Visual Disturbances: 0-None Headache: 2-Mild CIWA-Ar Total Score: 11 BHS COWS - Scale Resting Pulse: 1= [place] 81-100 Sweatin= Chills/Flushing Restless Observation: 0= Sits Still Pupil Size: 0= Normal to Room Light Bone or Joint Aches: 1= Mild Discomfort Runny Nose/ Eye Tearin= Nasal Congestion GI Upset > 30mins: 2= Nausea/Diarrhea Tremor Observation of Outstretched Hands: 2= Slight Tremor Visible Yawning Observation: 1= 1-2x During Session Anxiety or Irritability: 2=Irritable/Anxious Goose Flesh Skin: 0=Smooth Skin COWS Score: 11 S Progress Note (SOAP) Subjective: earlier today patient felt "weak" laying herself down to the floor her back against the wall denies pain denies impact of the sitting down on the floor no visiable injury noted able to walk from hallway to bed no trouble pivot herself to the bed patient received detox regimen as well as supportive pharmacotherapeutic regimen patient demands librium and valium and [employer] teaching on risks of benzo withdrawal as well as seizure patient demands methadone maintaining on 30 mg which suit her better that "I use a bundles a day" Objective: 04/14/19 13:39 Vital Signs Temperature 97.0 F L 04/14/19 09:54 Pulse Rate 83 04/14/19 09:54 Respiratory Rate 18 04/14/19 09:54 Blood Pressure 127/91 04/14/19 09:54 O2 Sat by Pulse Oximetry (%) Laboratory Last Values WBC 2.8 K/mm3 (4.0-10.0) L 04/13/19 07:00 RBC 4.15 M/mm3 (3.60-5.2) 04/13/19 07:00 Hgb 11.6 GM/dL (10.7-15.3) 04/13/19 07:00 Hct 35.0 % (32.4-45.2) 04/13/19 07:00 MCV 84.5 fl (80-96) 04/13/19 07:00 MCH 28.0 pg (25.7-33.7) 04/13/19 07:00 MCHC 33.2 g/dl (32.0-36.0) 04/13/19 07:00 RDW 16.0 % (11.6-15.6) H 04/13/19 07:00 Plt Count 254 K/MM3 (134-434) 04/13/19 07:00 MPV 8.7 fl (7.5-11.1) 04/13/19 07:00 Sodium 138 mmol/L (136-145) 04/13/19 07:00 Potassium 4.3 mmol/L (3.5-5.1) 04/13/19 07:00 Chloride 106 mmol/L (98-107) 04/13/19 07:00 Carbon Dioxide 26 mmol/L (21-32) 04/13/19 07:00 Anion Gap 5 MMOL/L (8-16) L 04/13/19 07:00 BUN 13.7 mg/dL (7-18) 04/13/19 07:00 Creatinine 0.9 mg/dL (0.55-1.3) 04/13/19 07:00 Est GFR (CKD-EPI)AfAm 92.70 04/13/19 07:00 Est GFR (CKD-EPI)NonAf 79.98 04/13/19 07:00 Random Glucose 97 mg/dL (74-106) 04/13/19 07:00 Calcium 8.8 mg/dL (8.5-10.1) 04/13/19 07:00 Total Bilirubin 0.3 mg/dL (0.2-1) 04/13/19 07:00 AST 43 U/L (15-37) H 04/13/19 07:00 ALT 29 U/L (13-61) 04/13/19 07:00 Alkaline Phosphatase 87 U/L (45-117) 04/13/19 07:00 Total Protein 8.6 g/dl (6.4-8.2) H 04/13/19 07:00 Albumin 2.9 g/dl (3.4-5.0) L 04/13/19 07:00 RPR Titer Nonreactive (NONREACTIVE) 04/13/19 07:00 lab noted patient agrees to return to her infectious disease specialist for low wbc follow up 04/14/19 13:40 Assessment: 04/14/19 13:41 benzo and opiate withdrawal sx Plan: continue benzo and opiate detox
[2019-04-14] MEDS: GABAPENTIN 100 MG CAPSULE (FP) PO SCH ×2 (14:03→22:26)
[2019-04-14] MEDS: QUEtiapine FUMARATE 50 MG TABLET PO SCH (22:26)
[2019-04-14] MEDS: THIAMINE HCL 100 MG TABLET (FP) PO SCH (22:26)
[2019-04-15] MEDS ORDERED: diazePAM 5 MG TABLET PO ONE (06:00)
[2019-04-15] MEDS: GABAPENTIN 100 MG CAPSULE (FP) PO SCH ×2 (07:00→13:31)
[2019-04-15] MEDS: METHOCARBAMOL 500 MG TABLET PO PRN (08:41)
[2019-04-15] MEDS: diazePAM 5 MG TABLET PO PRN (08:41)
[2019-04-15] MEDS ORDERED: METHADONE HCL 10 MG TABLET (FOR DETOX USE ONLY) PO ONE (10:00)
[2019-04-15] MEDS ORDERED: LIDOCAINE 5% TOPICAL PATCH TP SCH (10:00)
[2019-04-15] MEDS: PRENATAL VITAMINS W/ FOLIC ACID TABLET (FP) PO SCH (10:47)
[2019-04-15] MEDS: NICOTINE 14 MG/24 HOURS TOPICAL PATCH TD SCH (10:47)
[2019-04-15] MEDS: hydrOXYzine PAMOATE 25 MG CAPSULE (FP) PO PRN (10:48)
[2019-04-15] MEDS: cloNIDine HCL 0.1 MG TABLET PO PRN (10:48)
[2019-04-15 13:52] VITALS: BP 102/69; PULSE 93; TEMP 98
--- NOTE | 2019-04-15 17:39 | PN ---
S CIWA - CIWA Score Nausea/Vomitin Muscle Tremors: None Anxiety: 4-Mod. Anxious/Guarded Agitation: 4-Moderately Restless Paroxysmal Sweats: No Perspiration Orientation: 0-Oriented Tacttile Disturbances: 1-Very Mild Itch/Numbness Auditory Disturbances: 0-None Visual Disturbances: 0-None Headache: 0-None Present CIWA-Ar Total Score: 12 BHS COWS - Scale Resting Pulse: 1= [place] 81-100 Sweatin= Chills/Flushing Restless Observation: 1= Difficult to Sit Still Pupil Size: 0= Normal to Room Light Bone or Joint Aches: 2= Severe Diffuse Aches Runny Nose/ Eye Tearin= None GI Upset > 30mins: 2= Nausea/Diarrhea Tremor Observation of Outstretched Hands: 0= None Yawning Observation: 1= 1-2x During Session Anxiety or Irritability: 4=Extreme Anxiety Goose Flesh Skin: 0=Smooth Skin COWS Score: 12 S Progress Note (SOAP) Subjective: Body Aches, Anxious, Nausea, Stomach Cramping, Diarrhea. Objective: PATIENT A & O X 3, OBSERVED AMBULATING ON UNIT UNASSISTED. IN NO ACUTE DISTRESS. 04/15/19 17:36 Vital Signs Temperature 98 F 04/15/19 13:51 Pulse Rate 93 H 04/15/19 13:51 Respiratory Rate 16 04/15/19 13:51 Blood Pressure 102/69 04/15/19 13:51 O2 Sat by Pulse Oximetry (%) Laboratory Tests 04/13/19 04/13/19 04/13/19 07:00 07:00 07:00 WBC 2.8 L RBC 4.15 Hgb 11.6 Hct 35.0 MCV 84.5 MCH 28.0 MCHC 33.2 RDW 16.0 H Plt Count 254 MPV 8.7 Sodium 138 Potassium 4.3 Chloride 106 Carbon Dioxide 26 Anion Gap 5 L BUN 13.7 Creatinine 0.9 Est GFR (CKD-EPI)AfAm 92.70 Est GFR (CKD-EPI)NonAf 79.98 Random Glucose 97 Calcium 8.8 Total Bilirubin 0.3 AST 43 H ALT 29 Alkaline Phosphatase 87 Total Protein 8.6 H Albumin 2.9 L RPR Titer Nonreactive LABS NOTED. Assessment: 04/15/19 17:36 WITHDRAWAL SYMPTOMS. LEUKOPENIA. 04/15/19 17:37 Plan: PATIENT CONTINUE DETOX. INCREASE DAILY PO WATER INTAKE. PRN PEPTO-BISMOL PO FOR DIARRHEA.
--- NOTE | 2019-04-15 18:04 | DS ---
[facility] Detox Discharge Summary Admission Date: 04/12/19 Discharge Date: 04/15/19 - History Present History: Cannabis Dependence, Cocaine Dependence, Opioid Dependence, Sedative Dependence Additional Comments: DESPITE EFFORTS BY R[facility]ER AND BY NURSING STAFF TO ADDRESS PATIENT'S MEDICAL NEEDS / CONCERNS, PATIENT DOES NOT WISH TO REMAIN TO COMPLETE DETOX REGIMEN. RISKS OF LEAVING DETOX UNIT AGAINST MEDICAL ADVICE AND PRIOR TO COMPLETION OF DETOX REGIMEN EXPLAINED TO PATIENT. PATIENT ADVISED TO GO IMMEDIATELY TO NEAREST ER SHOULD ANY INTOLERABLE WITHDRAWAL / DETOX SYMPTOMS DEVELOP AT ANY TIME. PATIENT VERBALIZED UNDERSTANDING OF ALL INFORMATION / RECOMMENDATIONS PRESENTED TO HIM PRIOR TO DEPARTURE FROM DETOX UNIT. PATIENT LEFT DETOX UNIT IN STABLE MEDICAL CONDITION. Pertinent Past History: H.I.V., Asthma, Hep C, Depression, Bipolar Disorder, History Of Seizures (Due to Withdrawal), Schizophrenia, History Of Excoriation (Skin-Picking) Disorder, Dehydration, Nicotine Dependence, Insomnia. - Physical Exam Results Vital Signs: Vital Signs Temperature 98 F 04/15/19 13:51 Pulse Rate 93 H 04/15/19 13:51 Respiratory Rate 16 04/15/19 13:51 Blood Pressure 102/69 04/15/19 13:51 O2 Sat by Pulse Oximetry (%) Pertinent Admission Physical Exam Findings: WITHDRAWAL SYMPTOMS. Laboratory Tests 04/13/19 04/13/19 04/13/19 07:00 07:00 07:00 WBC 2.8 L RBC 4.15 Hgb 11.6 Hct 35.0 MCV 84.5 MCH 28.0 MCHC 33.2 RDW 16.0 H Plt Count 254 MPV 8.7 Sodium 138 Potassium 4.3 Chloride 106 Carbon Dioxide 26 Anion Gap 5 L BUN 13.7 Creatinine 0.9 Est GFR (CKD-EPI)AfAm 92.70 Est GFR (CKD-EPI)NonAf 79.98 Random Glucose 97 Calcium 8.8 Total Bilirubin 0.3 AST 43 H ALT 29 Alkaline Phosphatase 87 Total Protein 8.6 H Albumin 2.9 L RPR Titer Nonreactive LABS NOTED. - Medication Discharge Medications: Ambulatory Orders NK [No Known Home Medication] 04/12/19 - Diagnosis (1) Excoriation (skin-picking) disorder Status: Acute (2) Opioid dependence with withdrawal Status: Acute (3) Sedative, hypnotic or anxiolytic dependence with withdrawal, uncomplicated Status: Acute (4) Cannabis abuse, uncomplicated Status: Chronic (5) Cocaine dependence Status: Chronic Qualifiers: Substance use status: uncomplicated Qualified Code(s): F14.20 - Cocaine dependence, uncomplicated (6) HIV (human immunodeficiency virus infection) Status: Chronic Qualifiers: HIV symptom status: unspecified Qualified Code(s): B20 - Human immunodeficiency virus [HIV] disease (7) Hepatitis C Status: Chronic Qualifiers: Viral hepatitis chronicity: chronic Hepatic coma status: without hepatic coma Qualified Code(s): B18.2 - Chronic viral hepatitis C (8) History of seizure Status: Chronic (9) Nicotine dependence Status: Chronic Qualifiers: Nicotine product type: cigarettes Substance use status: uncomplicated Qualified Code(s): F17.210 - Nicotine dependence, cigarettes, uncomplicated (10) Substance-induced anxiety disorder Status: Suspected (11) Substance-induced sleep disorder Status: Suspected (12) Dehydration Status: Acute (13) History of bipolar disorder Status: Chronic (14) Insomnia Status: Chronic (15) Non-compliance Status: Chronic (16) Substance induced mood disorder Status: Chronic - AMA Did Patient Leave Against Medical Advice: Yes (PATIENT DID NOT WISH TO REMAIN TO COMPLETE DETOX REGIMEN.)
[2019-04-15] MEDS ORDERED: LIDOCAINE PATCH REMOVAL MC SCH (22:00)
[2019-04-16] MEDS ORDERED: METHADONE (DETOX) 10 MG, METHADONE (DETOX) 5 MG PO ONE (10:00)
[2019-04-17] MEDS ORDERED: METHADONE HCL 10 MG TABLET (FOR DETOX USE ONLY) PO ONE (10:00)
[2019-04-18] MEDS ORDERED: METHADONE HCL 5 MG TABLET (FOR DETOX USE ONLY) PO ONE (06:00)
== END 2019-04-15 14:16 | disposition left against medical advice (07) | DRG 770 ==
LOC: YASAS 17:01 → Y3N 22:33
PROVIDERS: ADMIT Surgery; ATTEND Surgery
PROC: HZ2ZZZZ Detoxification Services for Substance Abuse Treatment (ICD-10-PCS; principal; 2019-04-12)
DX: F11.23 Opioid dependence with withdrawal (principal); F13.230 Sedative, hypnotic or anxiolytic dependence with withdrawal, uncomplicated; F14.20 Cocaine dependence, uncomplicated; F12.10 Cannabis abuse, uncomplicated; F17.210 Nicotine dependence, cigarettes, uncomplicated; F19.24 Other psychoactive substance dependence with psychoactive substance-induced mood disorder; F19.280 Other psychoactive substance dependence with psychoactive substance-induced anxiety disorder; F19.282 Other psychoactive substance dependence with psychoactive substance-induced sleep disorder; F20.9 Schizophrenia, unspecified; F31.9 Bipolar disorder, unspecified; F42.4 Excoriation (skin-picking) disorder; Z21 Asymptomatic human immunodeficiency virus [HIV] infection status; D72.819 Decreased white blood cell count, unspecified; E86.0 Dehydration; B18.2 Chronic viral hepatitis C; Z86.69 Personal history of other diseases of the nervous system and sense organs; Z91.19 Patient's noncompliance with other medical treatment and regimen
CPT/HCPCS: 36415; 80053; 85027; 86593; J0735

== ENCOUNTER 2019-08-15 18:36 | Inpatient (IN) | payer OTHER ==
[2019-08-15 19:53] VITALS: BMI 20.5
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
[2019-08-15] MEDS ORDERED: MELATONIN 5 MG TABLETS PO PRN (22:07)
[2019-08-15] MEDS ORDERED: P-EPHED 60MG/TRIPROLIDI 2.5MG TABLET PO PRN (22:07)
[2019-08-15] MEDS ORDERED: ONDANSETRON *ODT* 4 MG TABLET SL PRN (22:07)
[2019-08-15] MEDS ORDERED: MAG HYDROX/AL HYDROX/SIMETH 30 ML UNIT-DOSE CUP PO PRN (22:07)
[2019-08-15] MEDS ORDERED: ACETAMINOPHEN 325 MG TABLET (FP) PO PRN ×2 (22:07)
[2019-08-15] MEDS ORDERED: NICOTINE POLACRILEX 2 MG GUM BUC PRN (22:07)
[2019-08-15] MEDS ORDERED: MAGNESIUM CITRATE 300 ML BOTTLE PO PRN (22:07)
[2019-08-15] MEDS ORDERED: DICYCLOMINE HCL 10 MG CAPSULE PO PRN (22:07)
[2019-08-15] MEDS ORDERED: MAGNESIUM HYDROX 2400MG/30ML ORAL SUSPENSION 30 ML CUP PO PRN (22:07)
[2019-08-15] MEDS ORDERED: MENTHOL/PHENOL 1 EACH UD MM PRN (22:07)
[2019-08-15] MEDS ORDERED: IBUPROFEN 400 MG TABLET (FP) PO PRN (22:07)
[2019-08-15] MEDS ORDERED: guaiFENesin 200 MG/10 ML 10 ML UNIT-DOSE CUPS PO PRN (22:07)
[2019-08-15] MEDS: hydrOXYzine PAMOATE 25 MG CAPSULE (FP) PO PRN (23:06)
[2019-08-16] MEDS ORDERED: cloNIDine HCL 0.1 MG TABLET PO PRN (05:45)
[2019-08-16] MEDS ORDERED: METHADONE HCL 10 MG TABLET (FOR DETOX USE ONLY) PO ONE (05:45)
[2019-08-16] MEDS: diazePAM 5 MG TABLET PO SCH ×3 (07:21→22:29)
[2019-08-16] MEDS ORDERED: METHADONE HCL 5 MG TABLET (FOR DETOX USE ONLY) PO ONE (10:00)
--- NOTE | 2019-08-16 10:09 | PN ---
[facility] CIWA - CIWA Score Nausea/Vomitin-No Nausea/No Vomiting Muscle Tremors: 4-Moderate,w/Arms Extend Anxiety: 3 Agitation: 4-Moderately Restless Paroxysmal Sweats: 3 Orientation: 0-Oriented Tacttile Disturbances: 0-None Auditory Disturbances: 0-None Visual Disturbances: 0-None Headache: 0-None Present CIWA-Ar Total Score: 14 S COWS - Scale Resting Pulse: 0= [place] 80 or Below Sweatin= Chills/Flushing Restless Observation: 1= Difficult to Sit Still Pupil Size: 0= Normal to Room Light Bone or Joint Aches: 2= Severe Diffuse Aches Runny Nose/ Eye Tearin= Runny Nose/Eyes GI Upset > 30mins: 0= None Tremor Observation of Outstretched Hands: 1= Tremor [place], Not Seen Yawning Observation: 1= 1-2x During Session Anxiety or Irritability: 2=Irritable/Anxious Goose Flesh Skin: 3=Piloerection COWS Score: 13 [facility] Progress Note (SOAP) Subjective: achy bones sweats shakes interrupted sleep teary eyes Objective: 08/16/19 10:08 Vital Signs Temperature 98.2 F 08/16/19 09:24 Pulse Rate 51 L 08/16/19 09:24 Respiratory Rate 16 08/16/19 09:24 Blood Pressure 106/69 08/16/19 09:24 O2 Sat by Pulse Oximetry (%) pending labs aaox3 lying in bed no acute distress Assessment: 08/16/19 10:08 withdrawals Plan: continue detox increase fluids pending labs
[2019-08-16 10:12] LABS: HEMATOCRIT 36.5 % (32.4-45.2); MCH 28.3 pg (25.7-33.7); MCHC 32.8 g/dl (32.0-36.0); MEAN CELL VOLUME 86.2 fl (80-96); MEAN PLT VOLUME 8.9 fl (7.5-11.1); PLATELET COUNT 209 K/MM3 (134-434); RBC 4.24 M/mm3 (3.60-5.2); RDW 14.4 % (11.6-15.6); WHITE BLOOD COUNT 3.7 K/mm3 (4.0-10.0)
[2019-08-16 10:40] LABS: ALBUMIN 2.8 g/dl (3.4-5.0); BILIRUBIN,TOTAL 0.8 mg/dL (0.2-1); BLOOD UREA NITROGEN 17.6 mg/dL (7-18); CALCIUM 8.9 mg/dL (8.5-10.1); CREATININE 0.9 mg/dL (0.55-1.3); POTASSIUM 4.3 mmol/L (3.5-5.1); TOT PROT 7.9 g/dl (6.4-8.2)
[2019-08-16] MEDS: NICOTINE 14 MG/24 HOURS TOPICAL PATCH TD SCH (13:32)
[2019-08-16] MEDS: PRENATAL VITAMINS W/ FOLIC ACID TABLET (FP) PO SCH (13:32)
--- NOTE | 2019-08-16 13:53 | CONSULT ---
[facility] Psychiatric Consult - Data Date of interview: 08/16/19 Psychiatric History: Patient was approached this morning and now. She was very drowsy and could not stay awake to [facility]. At this moment, she is less drowsy but told music writer:" I'm very week and does not feel like talking"
--- NOTE | 2019-08-16 17:01 | PN ---
[facility] Progress Note Note: nursing reports pt c/o decreased appetite , requesting ensure - ordered
[2019-08-16] MEDS: hydrOXYzine PAMOATE 25 MG CAPSULE (FP) PO PRN (18:53)
[2019-08-16] MEDS: METHOCARBAMOL 500 MG TABLET PO PRN (19:33)
[2019-08-16] MEDS: THIAMINE HCL 100 MG TABLET (FP) PO SCH (22:29)
[2019-08-17] MEDS: diazePAM 5 MG TABLET PO SCH ×2 (05:46→17:31)
[2019-08-17] MEDS: METHOCARBAMOL 500 MG TABLET PO PRN (05:48)
[2019-08-17] MEDS ORDERED: METHADONE HCL 5 MG TABLET (FOR DETOX USE ONLY) ONE (08:59)
[2019-08-17] MEDS ORDERED: METHADONE HCL 10 MG TABLET (FOR DETOX USE ONLY) ONE (08:59)
[2019-08-17] MEDS: diazePAM 5 MG TABLET PO PRN ×2 (09:00→21:52)
[2019-08-17] MEDS: NICOTINE 14 MG/24 HOURS TOPICAL PATCH TD SCH (09:02)
[2019-08-17] MEDS: PRENATAL VITAMINS W/ FOLIC ACID TABLET (FP) PO SCH (09:02)
[2019-08-17] MEDS ORDERED: METHADONE (DETOX) 20 MG, METHADONE (DETOX) 5 MG PO ONE (10:00)
[2019-08-17] MEDS ORDERED: GABAPENTIN 100 MG CAPSULE (FP) PO ONE (10:32)
[2019-08-17] MEDS ORDERED: LIDOCAINE 5% TOPICAL PATCH TP ONE (10:32)
--- NOTE | 2019-08-17 12:21 | PN ---
[facility] CIWA - CIWA Score Nausea/Vomitin-No Nausea/No Vomiting Muscle Tremors: 3 Anxiety: 3 Agitation: 3 Paroxysmal Sweats: 2 Orientation: 0-Oriented Tacttile Disturbances: 0-None Auditory Disturbances: 0-None Visual Disturbances: 0-None Headache: 0-None Present CIWA-Ar Total Score: 11 [facility] COWS - Scale Resting Pulse: 0= [place] 80 or Below Sweatin= Chills/Flushing Restless Observation: 1= Difficult to Sit Still Pupil Size: 0= Normal to Room Light Bone or Joint Aches: 2= Severe Diffuse Aches Runny Nose/ Eye Tearin= Runny Nose/Eyes GI Upset > 30mins: 1= Stomach Cramp Tremor Observation of Outstretched Hands: 2= Slight Tremor Visible Yawning Observation: 2= >3x During Session Anxiety or Irritability: 2=Irritable/Anxious Goose Flesh Skin: 0=Smooth Skin COWS Score: 13 S Progress Note (SOAP) Subjective: agitation sweats shakes interrupted sleep body aches irritable anxiety restless Objective: 08/17/19 12:20 Vital Signs Temperature 97.3 F L 08/17/19 09:39 Pulse Rate 74 08/17/19 09:39 Respiratory Rate 18 08/17/19 09:39 Blood Pressure 104/77 08/17/19 09:39 O2 Sat by Pulse Oximetry (%) Laboratory Tests 08/15/19 08/16/19 08/16/19 21:56 07:45 07:45 WBC 3.7 L RBC 4.24 Hgb 12.0 Hct 36.5 MCV 86.2 MCH 28.3 MCHC 32.8 RDW 14.4 Plt Count 209 MPV 8.9 Sodium 139 Potassium 4.3 Chloride 109 H Carbon Dioxide 27 Anion Gap 3 L BUN 17.6 Creatinine 0.9 Est GFR (CKD-EPI)AfAm 92.70 Est GFR (CKD-EPI)NonAf 79.98 Random Glucose 116 H Calcium 8.9 Total Bilirubin 0.8 AST 32 ALT 28 Alkaline Phosphatase 76 Total Protein 7.9 Albumin 2.8 L POC Urine HCG, Qual Negative RPR Titer 08/16/19 07:45 WBC RBC Hgb Hct MCV MCH MCHC RDW Plt Count MPV Sodium Potassium Chloride Carbon Dioxide Anion Gap BUN Creatinine Est GFR (CKD-EPI)AfAm Est GFR (CKD-EPI)NonAf Random Glucose Calcium Total Bilirubin AST ALT Alkaline Phosphatase Total Protein Albumin POC Urine HCG, Qual RPR Titer Nonreactive labs noted aaox3 ambulating no acute distress Assessment: 08/17/19 12:20 withdrawals Plan: continue detox increase fluids
[2019-08-17] MEDS: GABAPENTIN 100 MG CAPSULE (FP) PO SCH ×2 (13:17→21:49)
[2019-08-17] MEDS: BISMUTH SUBSALICYLATE 524 MG/30 ML UD PO PRN (13:20)
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
[2019-08-17] MEDS: hydrOXYzine PAMOATE 50 MG CAPSULE (FP) PO PRN (15:25)
[2019-08-17] MEDS: LIDOCAINE PATCH REMOVAL MC SCH (21:49)
[2019-08-17] MEDS: QUEtiapine FUMARATE 100 MG TABLET (FP) PO SCH (21:50)
[2019-08-17] MEDS: THIAMINE HCL 100 MG TABLET (FP) PO SCH (21:50)
[2019-08-18] MEDS ORDERED: diazePAM 5 MG TABLET PO ONE (06:00)
[2019-08-18] MEDS: GABAPENTIN 100 MG CAPSULE (FP) PO SCH ×3 (06:45→21:27)
[2019-08-18] MEDS ORDERED: ALBUTEROL SO4 2.5/IPRATROPIUM 0.5 INH SOL 3 ML VIAL.NEB. NEB PRN (09:12)
[2019-08-18] MEDS ORDERED: AZITHROMYCIN 250 MG TABLET PO ONE (09:12)
[2019-08-18] MEDS: PRENATAL VITAMINS W/ FOLIC ACID TABLET (FP) PO SCH (09:21)
[2019-08-18] MEDS: diazePAM 5 MG TABLET PO PRN ×2 (09:22→17:59)
[2019-08-18] MEDS: NICOTINE 14 MG/24 HOURS TOPICAL PATCH TD SCH (09:32)
[2019-08-18] MEDS ORDERED: METHADONE HCL 10 MG TABLET (FOR DETOX USE ONLY) PO ONE (10:00)
[2019-08-18] MEDS: LIDOCAINE 5% TOPICAL PATCH TP SCH (10:19)
[2019-08-18] MEDS: BISMUTH SUBSALICYLATE 524 MG/30 ML UD PO PRN (10:21)
[2019-08-18] MEDS: hydrOXYzine PAMOATE 50 MG CAPSULE (FP) PO PRN ×3 (10:21→21:31)
--- NOTE | 2019-08-18 11:15 | PN ---
[facility] CIWA - CIWA Score Nausea/Vomitin-Mild Nausea/No Vomiting Muscle Tremors: 3 Anxiety: 2 Agitation: 2 Paroxysmal Sweats: 1-Minimal Palms Moist Orientation: 0-Oriented Tacttile Disturbances: 0-None Auditory Disturbances: 0-None Visual Disturbances: 0-None Headache: 0-None Present CIWA-Ar Total Score: 9 [facility] COWS - Scale Resting Pulse: 0= [place] 80 or Below Sweatin= Chills/Flushing Restless Observation: 1= Difficult to Sit Still Pupil Size: 0= Normal to Room Light Bone or Joint Aches: 1= Mild Discomfort Runny Nose/ Eye Tearin= Nasal Congestion GI Upset > 30mins: 0= None Tremor Observation of Outstretched Hands: 1= Tremor [place], Not Seen Yawning Observation: 1= 1-2x During Session Anxiety or Irritability: 2=Irritable/Anxious Goose Flesh Skin: 0=Smooth Skin COWS Score: 8 S Progress Note (SOAP) Subjective: sweats chest congestions coughing with phlegm body aches anxiety restless Objective: 08/18/19 11:13 Vital Signs Temperature 98.2 F 08/18/19 10:51 Pulse Rate 76 08/18/19 10:51 Respiratory Rate 16 08/18/19 10:51 Blood Pressure 138/92 08/18/19 10:51 O2 Sat by Pulse Oximetry (%) Laboratory Tests 08/15/19 08/16/19 08/16/19 21:56 07:45 07:45 WBC 3.7 L RBC 4.24 Hgb 12.0 Hct 36.5 MCV 86.2 MCH 28.3 MCHC 32.8 RDW 14.4 Plt Count 209 MPV 8.9 Sodium 139 Potassium 4.3 Chloride 109 H Carbon Dioxide 27 Anion Gap 3 L BUN 17.6 Creatinine 0.9 Est GFR (CKD-EPI)AfAm 92.70 Est GFR (CKD-EPI)NonAf 79.98 Random Glucose 116 H Calcium 8.9 Total Bilirubin 0.8 AST 32 ALT 28 Alkaline Phosphatase 76 Total Protein 7.9 Albumin 2.8 L POC Urine HCG, Qual Negative RPR Titer 08/16/19 07:45 WBC RBC Hgb Hct MCV MCH MCHC RDW Plt Count MPV Sodium Potassium Chloride Carbon Dioxide Anion Gap BUN Creatinine Est GFR (CKD-EPI)AfAm Est GFR (CKD-EPI)NonAf Random Glucose Calcium Total Bilirubin AST ALT Alkaline Phosphatase Total Protein Albumin POC Urine HCG, Qual RPR Titer Nonreactive labs noted aaox3 ambulating no acute distress Assessment: 08/18/19 11:13 withdrawals lungs assessed; rhonchi noted productive cough noted with yellowish/greenish phlegm Plan: continue detox increase fluids duoneb prn zithromax x 5 days ordered
[2019-08-18] MEDS: QUEtiapine FUMARATE 100 MG TABLET (FP) PO SCH (21:27)
[2019-08-18] MEDS: THIAMINE HCL 100 MG TABLET (FP) PO SCH (21:27)
[2019-08-18] MEDS: LIDOCAINE PATCH REMOVAL MC SCH (22:03)
[2019-08-19] MEDS: GABAPENTIN 100 MG CAPSULE (FP) PO SCH (07:08)
[2019-08-19] MEDS: hydrOXYzine PAMOATE 50 MG CAPSULE (FP) PO PRN (07:46)
[2019-08-19] MEDS ORDERED: METHADONE HCL 10 MG TABLET (FOR DETOX USE ONLY) ONE (09:03)
[2019-08-19] MEDS ORDERED: METHADONE HCL 5 MG TABLET (FOR DETOX USE ONLY) ONE (09:03)
[2019-08-19] MEDS: LIDOCAINE 5% TOPICAL PATCH TP SCH (09:04)
[2019-08-19] MEDS: PRENATAL VITAMINS W/ FOLIC ACID TABLET (FP) PO SCH (09:04)
[2019-08-19] MEDS: NICOTINE 14 MG/24 HOURS TOPICAL PATCH TD SCH (09:05)
--- NOTE | 2019-08-19 09:53 | PN ---
[facility] Progress Note Note: pt states she needs to leave now because she want to make to a methadone program of her choice. Pt was made aware and encouraged to stay to complete detox and speak to counselor regarding setting her up with a [facility], however pt refused and chose to sign out AMA. pt was advised about the risk of relapse, seizure, DT, OD and or loss. pt states she will not risk her recovery and will be going to the [facility]. Pt was provided with d/c paper with referral.
[2019-08-19] MEDS ORDERED: AZITHROMYCIN 250 MG TABLET PO SCH (10:00)
[2019-08-19] MEDS ORDERED: METHADONE (DETOX) 10 MG, METHADONE (DETOX) 5 MG PO ONE (10:00)
[2019-08-19 10:03] VITALS: BP 137/96; PULSE 95; TEMP 97.3
--- NOTE | 2019-08-19 11:39 | DS ---
[facility] Detox Discharge Summary Admission Date: 08/15/19 - History Present History: Alcohol Dependence, Cannabis Dependence, Cocaine Dependence, Opioid Dependence, Sedative Dependence - Physical Exam Results Vital Signs: Vital Signs Temperature 97.3 F L 08/19/19 10:00 Pulse Rate 95 H 08/19/19 10:00 Respiratory Rate 18 08/19/19 10:00 Blood Pressure 137/96 08/19/19 10:00 O2 Sat by Pulse Oximetry (%) Pertinent Admission Physical Exam Findings: pt arrived in withdrawals Vital Signs Temperature 97.3 F L 08/19/19 10:00 Pulse Rate 95 H 08/19/19 10:00 Respiratory Rate 18 08/19/19 10:00 Blood Pressure 137/96 08/19/19 10:00 O2 Sat by Pulse Oximetry (%) Laboratory Tests 08/15/19 08/16/19 08/16/19 21:56 07:45 07:45 WBC 3.7 L RBC 4.24 Hgb 12.0 Hct 36.5 MCV 86.2 MCH 28.3 MCHC 32.8 RDW 14.4 Plt Count 209 MPV 8.9 Sodium 139 Potassium 4.3 Chloride 109 H Carbon Dioxide 27 Anion Gap 3 L BUN 17.6 Creatinine 0.9 Est GFR (CKD-EPI)AfAm 92.70 Est GFR (CKD-EPI)NonAf 79.98 Random Glucose 116 H Calcium 8.9 Total Bilirubin 0.8 AST 32 ALT 28 Alkaline Phosphatase 76 Total Protein 7.9 Albumin 2.8 L POC Urine HCG, Qual Negative RPR Titer 08/16/19 07:45 WBC RBC Hgb Hct MCV MCH MCHC RDW Plt Count MPV Sodium Potassium Chloride Carbon Dioxide Anion Gap BUN Creatinine Est GFR (CKD-EPI)AfAm Est GFR (CKD-EPI)NonAf Random Glucose Calcium Total Bilirubin AST ALT Alkaline Phosphatase Total Protein Albumin POC Urine HCG, Qual RPR Titer Nonreactive aaox3 ambulating pt did not complete detox; pt chose to sign out AMA. - Treatment Hospital Course: Rehab Referral Accepted - Medication Discharge Medications: Ambulatory Orders Azithromycin [Zithromax 250mg Tablets -] 250 mg PO DAILY #4 tablet 08/19/19 - Diagnosis (1) Alcohol dependence with uncomplicated withdrawal Status: Chronic (2) Bipolar 1 disorder Status: Acute (3) Cannabis abuse, uncomplicated Status: Chronic (4) Cocaine dependence Status: Chronic Qualifiers: Substance use status: uncomplicated Qualified Code(s): F14.20 - Cocaine dependence, uncomplicated (5) Dehydration Status: Acute (6) Depressed affect Status: Acute (7) Excoriation (skin-picking) disorder Status: Acute (8) IVDU (intravenous drug user) Status: Acute (9) Opioid dependence with withdrawal Status: Chronic (10) Schizophrenia Status: Acute (11) Sedative, hypnotic or anxiolytic dependence with withdrawal, uncomplicated Status: Chronic (12) Substance induced mood disorder Status: Acute (13) Substance-induced sleep disorder Status: Acute (14) Track santana due to intravenous drug abuse Status: Acute (15) Bipolar II disorder Status: Chronic (16) Bronchial asthma Status: Chronic (17) HIV (human immunodeficiency virus infection) Status: Chronic Qualifiers: HIV symptom status: unspecified Qualified Code(s): B20 - Human immunodeficiency virus [HIV] disease (18) Hepatitis C Status: Chronic Qualifiers: Viral hepatitis chronicity: chronic Hepatic coma status: without hepatic coma Qualified Code(s): B18.2 - Chronic viral hepatitis C (19) History of bipolar disorder Status: Chronic (20) Insomnia Status: Chronic (21) Nicotine dependence Status: Chronic Qualifiers: Nicotine product type: cigarettes Substance use status: uncomplicated Qualified Code(s): F17.210 - Nicotine dependence, cigarettes, uncomplicated (22) Non-compliance Status: Chronic (23) PTSD (post-traumatic stress disorder) Status: Chronic (24) Substance-induced anxiety disorder Status: Suspected (25) Substance-induced sleep disorder Status: Suspected (26) History of seizure Status: Resolved - AMA Did Patient Leave Against Medical Advice: No
[2019-08-20] MEDS ORDERED: METHADONE HCL 10 MG TABLET (FOR DETOX USE ONLY) PO ONE (10:00)
[2019-08-21] MEDS ORDERED: METHADONE HCL 5 MG TABLET (FOR DETOX USE ONLY) PO ONE (06:00)
== END 2019-08-19 10:20 | disposition left against medical advice (07) | DRG 770 ==
LOC: YASAS 18:36 → Y6N 21:53
PROVIDERS: ADMIT Allergy & Immunology; ATTEND Allergy & Immunology
PROC: HZ2ZZZZ Detoxification Services for Substance Abuse Treatment (ICD-10-PCS; principal; 2019-08-15)
DX: F10.230 Alcohol dependence with withdrawal, uncomplicated (principal); F11.23 Opioid dependence with withdrawal; F13.230 Sedative, hypnotic or anxiolytic dependence with withdrawal, uncomplicated; F14.20 Cocaine dependence, uncomplicated; F12.20 Cannabis dependence, uncomplicated; F17.210 Nicotine dependence, cigarettes, uncomplicated; F19.282 Other psychoactive substance dependence with psychoactive substance-induced sleep disorder; F19.24 Other psychoactive substance dependence with psychoactive substance-induced mood disorder; F31.89 Other bipolar disorder; F31.81 Bipolar II disorder; F43.10 Post-traumatic stress disorder, unspecified; F42.4 Excoriation (skin-picking) disorder; Z21 Asymptomatic human immunodeficiency virus [HIV] infection status; E80.6 Other disorders of bilirubin metabolism; R45.89 Other symptoms and signs involving emotional state; J45.998 Other asthma; R05 Cough; R09.3 Abnormal sputum; Z86.69 Personal history of other diseases of the nervous system and sense organs; Z91.19 Patient's noncompliance with other medical treatment and regimen
CPT/HCPCS: 36415; 80053; 81025; 85027; 86593; 94640; J0735; Q0162

== ENCOUNTER 2023-03-16 13:18 | Inpatient (IN) | payer OTHER ==
[2023-03-16 14:12] VITALS: BMI 23.2
[2023-03-16] MEDS ORDERED: BENZOCAINE/MENTHOL (CHLORASEPTIC ) LOZENGE MM PRN (16:07)
[2023-03-16] MEDS ORDERED: NALOXONE HCL 0.4 MG/ML VIAL IM PRN (16:07)
[2023-03-16] MEDS ORDERED: IBUPROFEN 400 MG TABLET (FP) PO PRN (16:07)
[2023-03-16] MEDS ORDERED: chlordiazePOXIDE HCL 25 MG CAPSULE PO PRN (16:07)
[2023-03-16] MEDS ORDERED: NICOTINE 10 MG CARTRIDGE (INHALER) IH PRN (16:07)
[2023-03-16] MEDS ORDERED: BENZONATATE 200 MG CAPSULE PO PRN (16:07)
[2023-03-16] MEDS ORDERED: NICOTINE POLACRILEX 2 MG GUM BUC PRN (16:07)
[2023-03-16] MEDS ORDERED: ONDANSETRON *ODT* 4 MG TABLET SL PRN (16:07)
[2023-03-16] MEDS ORDERED: BISMUTH SUBSALICYLATE 524 MG/30 ML PO PRN (16:07)
[2023-03-16] MEDS ORDERED: NALOXONE HCL (KLOXXADO) 8 MG SPRAY NS PRN (16:07)
[2023-03-16] MEDS ORDERED: DICYCLOMINE HCL 10 MG CAPSULE PO PRN (16:07)
[2023-03-16] MEDS ORDERED: COLLOIDAL OATMEAL 1 BAR EACH TP PRN (16:07)
[2023-03-16] MEDS ORDERED: MAGNESIUM HYDROX 2400MG/30ML ORAL SUSPENSION 30 ML CUP PO PRN (16:07)
[2023-03-16] MEDS ORDERED: MAG HYDROX/AL HYDROX/SIMETH 30 ML UNIT-DOSE CUP PO PRN (16:07)
[2023-03-16] MEDS ORDERED: LOPERAMIDE HCL 2 MG CAPSULE PO PRN (16:07)
[2023-03-16] MEDS ORDERED: cloNIDine HCL 0.1 MG TABLET PO PRN (16:07)
[2023-03-16] MEDS ORDERED: AMMONIUM LACTATE 12% LOTION 225 GM BOTTLE TP PRN (16:07)
[2023-03-16] MEDS ORDERED: POLYETHYLENE GLYCOL (HEALTHYLAX) 3350 17 GM PACKET PO PRN (16:07)
[2023-03-16] MEDS ORDERED: methaDONE HCL 10 MG TABLET (FOR DETOX USE ONLY) PO ONE (16:07)
[2023-03-16] MEDS ORDERED: ACETAMINOPHEN 325 MG TABLET (FP) PO PRN (16:07)
[2023-03-16] MEDS ORDERED: guaiFENesin 600 MG TABLET.ER (FP) PO PRN (16:07)
[2023-03-16] MEDS ORDERED: chlordiazePOXIDE HCL 25 MG CAPSULE ONE (16:57)
[2023-03-16] MEDS: chlordiazePOXIDE HCL 25 MG CAPSULE PO SCH ×2 (16:59→22:06)
[2023-03-16] MEDS: METHOCARBAMOL 500 MG TABLET PO PRN (17:26)
[2023-03-16] MEDS: NICOTINE 21 MG/24 HOURS TOPICAL PATCH TD SCH (17:38)
[2023-03-16] MEDS: MELATONIN 5 MG TABLETS PO SCH (22:05)
[2023-03-16] MEDS: THIAMINE HCL 100 MG TABLET (FP) PO SCH (22:05)
[2023-03-17] MEDS: chlordiazePOXIDE HCL 25 MG CAPSULE PO SCH ×4 (05:32→22:08)
[2023-03-17] MEDS ORDERED: methaDONE HCL 10 MG TABLET PO ONE (09:05)
[2023-03-17] MEDS: NICOTINE 21 MG/24 HOURS TOPICAL PATCH TD SCH (10:07)
[2023-03-17] MEDS: PRENATAL VITAMINS W/ FOLIC ACID TABLET (FP) PO SCH (10:09)
[2023-03-17] MEDS: METHOCARBAMOL 500 MG TABLET PO PRN ×2 (10:11→19:19)
[2023-03-17 11:20] LABS: HEMATOCRIT 34.6 % (32.4-45.2); HEMOGLOBIN 11.3 GM/dL (10.7-15.3); MCH 29.4 pg (25.7-33.7); MCHC 32.8 g/dl (32.0-36.0); MEAN CELL VOLUME 89.7 fl (80-96); MEAN PLT VOLUME 8.2 fl (7.5-11.1); PLATELET COUNT 225 10^3/uL (134-434); RBC 3.85 M/mm3 (3.60-5.2); RDW 13.3 % (11.6-15.6); WHITE BLOOD COUNT 2.8 K/mm3 (4.0-10.0)
[2023-03-17 11:44] LABS: POTASSIUM 4.3 mmol/L (3.5-5.1)
[2023-03-17] MEDS: hydrOXYzine PAMOATE 25 MG CAPSULE (FP) PO PRN ×2 (11:46→19:19)
[2023-03-17 11:47] LABS: ALBUMIN 2.7 g/dl (3.4-5.0); BLOOD UREA NITROGEN 25.9 mg/dL (7-18); CALCIUM 8.3 mg/dL (8.5-10.1)
[2023-03-17 11:51] LABS: CREATININE 0.9 mg/dL (0.55-1.3)
[2023-03-17 11:52] LABS: BILIRUBIN,TOTAL 0.3 mg/dL (0.2-1); TOT PROT 7.2 g/dl (6.4-8.2)
[2023-03-17] MEDS: THIAMINE HCL 100 MG TABLET (FP) PO SCH (22:08)
[2023-03-17] MEDS: MELATONIN 5 MG TABLETS PO SCH (22:08)
[2023-03-17] MEDS: QUEtiapine FUMARATE 50 MG TABLET PO SCH (22:09)
[2023-03-18] MEDS: chlordiazePOXIDE HCL 25 MG CAPSULE PO SCH ×4 (05:46→22:24)
[2023-03-18] MEDS ORDERED: methaDONE HCL 10 MG TABLET PO ONE (06:00)
[2023-03-18] MEDS ORDERED: methaDONE HCL 10 MG TABLET (FOR DETOX USE ONLY) PO ONE (10:00)
[2023-03-18] MEDS: NICOTINE 21 MG/24 HOURS TOPICAL PATCH TD SCH (10:02)
[2023-03-18] MEDS: hydrOXYzine PAMOATE 25 MG CAPSULE (FP) PO PRN ×2 (10:05→17:34)
[2023-03-18] MEDS: PRENATAL VITAMINS W/ FOLIC ACID TABLET (FP) PO SCH (10:05)
[2023-03-18] MEDS: METHOCARBAMOL 500 MG TABLET PO PRN ×2 (10:05→22:24)
[2023-03-18] MEDS: QUEtiapine FUMARATE 50 MG TABLET PO SCH (22:24)
[2023-03-18] MEDS: THIAMINE HCL 100 MG TABLET (FP) PO SCH (22:24)
[2023-03-18] MEDS: IBUPROFEN 600 MG TABLET (FP) PO PRN (22:24)
[2023-03-18] MEDS: MELATONIN 5 MG TABLETS PO SCH (22:24)
[2023-03-19] MEDS ORDERED: chlordiazePOXIDE HCL 10 MG CAPSULE PO PRN
[2023-03-19] MEDS: chlordiazePOXIDE HCL 10 MG CAPSULE PO SCH ×4 (05:57→22:23)
[2023-03-19] MEDS ORDERED: methaDONE HCL 10 MG TABLET PO SCH (06:00)
[2023-03-19] MEDS: NICOTINE 21 MG/24 HOURS TOPICAL PATCH TD SCH (10:25)
[2023-03-19] MEDS: PRENATAL VITAMINS W/ FOLIC ACID TABLET (FP) PO SCH (10:25)
[2023-03-19] MEDS: METHOCARBAMOL 500 MG TABLET PO PRN ×2 (10:28→22:23)
[2023-03-19 12:07] LABS: BASO % 1.2 % (0-2.0); EOS % 10.6 % (0-4.5); HEMATOCRIT 34.6 % (32.4-45.2); HEMOGLOBIN 11.2 GM/dL (10.7-15.3); LYMPH % 46.3 % (8-40); MCH 29.4 pg (25.7-33.7); MCHC 32.4 g/dl (32.0-36.0); MEAN CELL VOLUME 90.6 fl (80-96); MEAN PLT VOLUME 8.6 fl (7.5-11.1); MONO % 12.4 % (3.8-10.2); NEUT % 29.5 % (42.8-82.8); PLATELET COUNT 236 10^3/uL (134-434); RBC 3.81 M/mm3 (3.60-5.2); RDW 13.1 % (11.6-15.6); WHITE BLOOD COUNT 2.6 K/mm3 (4.0-10.0)
[2023-03-19] MEDS: IBUPROFEN 600 MG TABLET (FP) PO PRN ×2 (13:23→22:50)
[2023-03-19] MEDS: hydrOXYzine PAMOATE 25 MG CAPSULE (FP) PO PRN (17:35)
[2023-03-19] MEDS: THIAMINE HCL 100 MG TABLET (FP) PO SCH (22:23)
[2023-03-19] MEDS: QUEtiapine FUMARATE 50 MG TABLET PO SCH (22:23)
[2023-03-19] MEDS: MELATONIN 5 MG TABLETS PO SCH (22:24)
[2023-03-20] MEDS ORDERED: chlordiazePOXIDE HCL 10 MG CAPSULE PO SCH (05:00)
[2023-03-20 06:17] VITALS: RESP 16
[2023-03-20 09:07] VITALS: BP 101/70; PULSE 76; TEMP 98.4
[2023-03-20] MEDS ORDERED: methaDONE HCL 10 MG TABLET (FOR DETOX USE ONLY) PO ONE (10:00)
[2023-03-20] MEDS: NICOTINE 21 MG/24 HOURS TOPICAL PATCH TD SCH (10:12)
[2023-03-20] MEDS: PRENATAL VITAMINS W/ FOLIC ACID TABLET (FP) PO SCH (10:12)
[2023-03-21] MEDS ORDERED: chlordiazePOXIDE HCL 10 MG CAPSULE PO ONE (05:00)
== END 2023-03-20 09:50 | disposition home or self-care (01) | DRG 773 ==
LOC: YASAS 13:18 → Y6N 16:38
PROVIDERS: ADMIT Allergy & Immunology; ATTEND Surgery
PROC: HZ2ZZZZ Detoxification Services for Substance Abuse Treatment (ICD-10-PCS; principal; 2023-03-16)
DX: F10.230 Alcohol dependence with withdrawal, uncomplicated (principal); F13.230 Sedative, hypnotic or anxiolytic dependence with withdrawal, uncomplicated; F11.20 Opioid dependence, uncomplicated; F17.210 Nicotine dependence, cigarettes, uncomplicated; F19.280 Other psychoactive substance dependence with psychoactive substance-induced anxiety disorder; F19.282 Other psychoactive substance dependence with psychoactive substance-induced sleep disorder; F31.9 Bipolar disorder, unspecified; F20.9 Schizophrenia, unspecified; F41.9 Anxiety disorder, unspecified; F43.10 Post-traumatic stress disorder, unspecified; Z21 Asymptomatic human immunodeficiency virus [HIV] infection status; G40.909 Epilepsy, unspecified, not intractable, without status epilepticus; J45.909 Unspecified asthma, uncomplicated; B18.2 Chronic viral hepatitis C; Z88.0 Allergy status to penicillin
CPT/HCPCS: 36415; 80053; 81025; 83036; 84520; 85025; 85027; 86780; 87635

== ENCOUNTER 2024-01-19 12:05 | Inpatient (IN) | payer OTHER ==
[2024-01-19 12:55] VITALS: BMI 23.8
[2024-01-19] MEDS ORDERED: guaiFENesin 600 MG TABLET.ER (FP) PO PRN (14:10)
[2024-01-19] MEDS ORDERED: METHOCARBAMOL 500 MG TABLET PO PRN (14:10)
[2024-01-19] MEDS ORDERED: NALOXONE HCL 0.4 MG/ML VIAL IM PRN (14:10)
[2024-01-19] MEDS ORDERED: BENZONATATE 200 MG CAPSULE PO PRN (14:10)
[2024-01-19] MEDS ORDERED: NALOXONE HCL (KLOXXADO) 8 MG SPRAY NS PRN (14:10)
[2024-01-19] MEDS ORDERED: hydrOXYzine PAMOATE 25 MG CAPSULE (FP) PO PRN (14:10)
[2024-01-19] MEDS ORDERED: MAGNESIUM HYDROX 2400MG/30ML ORAL SUSPENSION 30 ML CUP PO PRN (14:10)
[2024-01-19] MEDS ORDERED: ACETAMINOPHEN 325 MG TABLET (FP) PO PRN (14:10)
[2024-01-19] MEDS ORDERED: MAG HYDROX/AL HYDROX/SIMETH 30 ML UNIT-DOSE CUP PO PRN (14:10)
[2024-01-19] MEDS ORDERED: chlordiazePOXIDE HCL 25 MG CAPSULE PO PRN ×2 (14:10→23:00)
[2024-01-19] MEDS ORDERED: IBUPROFEN 600 MG TABLET (FP) PO PRN (14:10)
[2024-01-19] MEDS ORDERED: BENZOCAINE/MENTHOL (CHLORASEPTIC ) LOZENGE MM PRN (14:10)
[2024-01-19] MEDS ORDERED: POLYETHYLENE GLYCOL (HEALTHYLAX) 3350 17 GM PACKET PO PRN (14:10)
[2024-01-19] MEDS ORDERED: methaDONE HCL 10 MG TABLET PO ONE (14:10)
[2024-01-19] MEDS ORDERED: DICYCLOMINE HCL 10 MG CAPSULE PO PRN (14:10)
[2024-01-19] MEDS ORDERED: BISMUTH SUBSALICYLATE 262 MG/15 ML BTL PO PRN (14:10)
[2024-01-19] MEDS ORDERED: IBUPROFEN 400 MG TABLET (FP) PO PRN (14:10)
[2024-01-19] MEDS ORDERED: methaDONE HCL 10 MG TABLET PO PRN (16:10)
[2024-01-19] MEDS: NICOTINE 21 MG/24 HOURS TOPICAL PATCH TD SCH (17:01)
[2024-01-19] MEDS: PRENATAL VITAMINS W/ FOLIC ACID TABLET (FP) PO SCH (17:01)
[2024-01-19] MEDS: cloNIDine HCL 0.1 MG TABLET PO SCH (18:01)
[2024-01-19] MEDS: VITAMINS A AND D TOPICAL OINTMENT TP SCH (18:01)
[2024-01-19] MEDS: MELATONIN 5 MG TABLETS PO SCH (23:41)
[2024-01-19] MEDS: THIAMINE 100 MG TABLET PO SCH (23:41)
[2024-01-19] MEDS: methaDONE HCL 10 MG TABLET PO ONE (23:41)
[2024-01-19] MEDS: chlordiazePOXIDE HCL 25 MG CAPSULE PO SCH (23:42)
[2024-01-20] MEDS: methaDONE 40 MG, methaDONE 10 MG PO ONE (05:54)
[2024-01-20] MEDS ORDERED: methaDONE HCL 10 MG TABLET PO PRN (10:13)
[2024-01-20] MEDS: diazePAM 5 MG TABLET PO PRN (10:41)
[2024-01-20] MEDS: DIPHENOXYLATE 2.5/ATROPINE.025 1 COMBO TABLET PO ONE (10:41)
[2024-01-20 11:52] LABS: CHLORIDE 104 mmol/L (98-107); POTASSIUM 4.4 mmol/L (3.5-5.1); SODIUM 135 mmol/L (136-145)
[2024-01-20 11:57] LABS: ALBUMIN 3.1 g/dl (3.4-5.0); ANION GAP 4 mmol/L (4-13); BLOOD UREA NITROGEN 27.2 mg/dL (7-18); CALCIUM 9.6 mg/dL (8.5-10.1); CO2 27 mmol/L (21-32)
[2024-01-20 11:58] LABS: GLUCOSE,RANDOM 96 mg/dL (74-106)
[2024-01-20 11:59] LABS: CREATININE 0.9 mg/dL (0.55-1.3)
[2024-01-20 12:00] LABS: BILIRUBIN,TOTAL 0.4 mg/dL (0.2-1); HEMATOCRIT 38.5 % (32.4-45.2); HEMOGLOBIN 12.7 GM/dL (10.7-15.3); MCH 28.7 pg (25.7-33.7); MCHC 32.9 g/dl (32.0-36.0); MEAN CELL VOLUME 87.4 fl (80-96); MEAN PLT VOLUME 8.1 fl (7.5-11.1); PLATELET COUNT 279 10^3/uL (134-434); RDW 14.7 % (11.6-15.6); SGOT/AST 57 U/L (15-37); TOT PROT 8.4 g/dl (6.4-8.2); WHITE BLOOD COUNT 3.8 K/mm3 (4.0-10.0)
[2024-01-20 12:01] LABS: SGPT/ALT 47 U/L (13-61)
[2024-01-20 12:02] LABS: ALK PHOS 103 U/L (45-117)
[2024-01-20] MEDS: diazePAM 5 MG TABLET PO SCH (17:51)
[2024-01-20] MEDS: QUEtiapine FUMARATE 50 MG TABLET PO SCH (22:39)
[2024-01-21] MEDS ORDERED: cloNIDine HCL 0.1 MG TABLET PO PRN
[2024-01-21] MEDS ORDERED: chlordiazePOXIDE HCL 25 MG CAPSULE PO SCH (05:00)
[2024-01-21] MEDS: methaDONE 40 MG, methaDONE 20 MG PO ONE ×2 (06:57→10:49)
[2024-01-21 09:34] VITALS: RESP 18; TEMP 98
[2024-01-21] MEDS ORDERED: methaDONE 40 MG, methaDONE 20 MG PO ONE (10:15)
[2024-01-21 13:32] VITALS: BP 108/74; PULSE 84
[2024-01-21] MEDS: ONDANSETRON *ODT* 4 MG TABLET SL PRN (14:47)
[2024-01-21] MEDS: LOPERAMIDE HCL 2 MG CAPSULE PO PRN (14:47)
[2024-01-22] MEDS ORDERED: chlordiazePOXIDE HCL 10 MG CAPSULE PO PRN
[2024-01-22] MEDS ORDERED: chlordiazePOXIDE HCL 10 MG CAPSULE PO SCH (05:00)
[2024-01-22] MEDS ORDERED: methaDONE 40 MG, methaDONE 30 MG PO ONE ×2 (06:00→10:00)
[2024-01-22] MEDS ORDERED: diazePAM 5 MG TABLET PO SCH (06:00)
[2024-01-23] MEDS ORDERED: chlordiazePOXIDE HCL 10 MG CAPSULE PO SCH (05:00)
[2024-01-23] MEDS ORDERED: diazePAM 5 MG TABLET PO SCH (06:00)
[2024-01-23] MEDS ORDERED: methaDONE HCL 40 MG DISPERSABLE TABLET PO ONE ×2 (06:00→10:00)
[2024-01-24] MEDS ORDERED: chlordiazePOXIDE HCL 10 MG CAPSULE PO ONE (05:00)
[2024-01-24] MEDS ORDERED: diazePAM 5 MG TABLET PO ONE (06:00)
[2024-01-24] MEDS ORDERED: methaDONE 80 MG, methaDONE 10 MG PO ONE ×2 (06:00→10:00)
== END 2024-01-21 18:05 | disposition left against medical advice (07) | DRG 770 ==
LOC: YASAS 12:05 → Y6N 15:45
PROVIDERS: ADMIT Allergy & Immunology; ATTEND Surgery
PROC: HZ2ZZZZ Detoxification Services for Substance Abuse Treatment (ICD-10-PCS; principal; 2024-01-19)
DX: F11.23 Opioid dependence with withdrawal (principal); F10.230 Alcohol dependence with withdrawal, uncomplicated; F13.230 Sedative, hypnotic or anxiolytic dependence with withdrawal, uncomplicated; F14.20 Cocaine dependence, uncomplicated; F12.20 Cannabis dependence, uncomplicated; F17.210 Nicotine dependence, cigarettes, uncomplicated; F31.81 Bipolar II disorder; F19.282 Other psychoactive substance dependence with psychoactive substance-induced sleep disorder; F19.24 Other psychoactive substance dependence with psychoactive substance-induced mood disorder; F43.10 Post-traumatic stress disorder, unspecified; F42.4 Excoriation (skin-picking) disorder; Z21 Asymptomatic human immunodeficiency virus [HIV] infection status; Z62.810 Personal history of physical and sexual abuse in childhood; Z91.410 Personal history of adult physical and sexual abuse; Z63.0 Problems in relationship with spouse or partner; Z63.8 Other specified problems related to primary support group; Z86.19 Personal history of other infectious and parasitic diseases; Z86.69 Personal history of other diseases of the nervous system and sense organs; Z88.8 Allergy status to other drugs, medicaments and biological substances
CPT/HCPCS: 36415; 80053; 80305; 80307; 81025; 82140; 85027; 86780; 93005; 93010; Q0162

== ENCOUNTER 2024-05-25 11:57 | Inpatient (IN) | payer OTHER ==
[2024-05-25 12:39] VITALS: BMI 24.2
[2024-05-25] MEDS ORDERED: POLYETHYLENE GLYCOL (HEALTHYLAX) 3350 17 GM PACKET PO PRN (13:39)
[2024-05-25] MEDS ORDERED: ACETAMINOPHEN 325 MG TABLET (FP) PO PRN (13:39)
[2024-05-25] MEDS ORDERED: NALOXONE HCL 0.4 MG/ML VIAL IM PRN (13:39)
[2024-05-25] MEDS ORDERED: MAG HYDROX/AL HYDROX/SIMETH 30 ML UNIT-DOSE CUP PO PRN (13:39)
[2024-05-25] MEDS ORDERED: BISMUTH SUBSALICYLATE 262 MG/15 ML BTL PO PRN (13:39)
[2024-05-25] MEDS ORDERED: ONDANSETRON *ODT* 4 MG TABLET SL PRN (13:39)
[2024-05-25] MEDS ORDERED: guaiFENesin 600 MG TABLET.ER (FP) PO PRN (13:39)
[2024-05-25] MEDS ORDERED: DICYCLOMINE HCL 10 MG CAPSULE PO PRN (13:39)
[2024-05-25] MEDS ORDERED: LOPERAMIDE HCL 2 MG CAPSULE PO PRN (13:39)
[2024-05-25] MEDS ORDERED: NALOXONE (NARCAN) HCL 4 MG/0.1 ML SPRAY NS PRN (13:39)
[2024-05-25] MEDS ORDERED: IBUPROFEN 400 MG TABLET (FP) PO PRN (13:39)
[2024-05-25] MEDS ORDERED: BENZONATATE 200 MG CAPSULE PO PRN (13:39)
[2024-05-25] MEDS ORDERED: MAGNESIUM HYDROX 2400MG/30ML ORAL SUSPENSION 30 ML CUP PO PRN (13:39)
[2024-05-25] MEDS ORDERED: IBUPROFEN 600 MG TABLET (FP) PO PRN (13:39)
[2024-05-25] MEDS ORDERED: BENZOCAINE/MENTHOL (CHLORASEPTIC ) LOZENGE MM PRN (13:39)
[2024-05-25] MEDS ORDERED: methaDONE HCL 10 MG TABLET PO ONE (14:30)
[2024-05-25] MEDS ORDERED: methaDONE HCL 10 MG TABLET (FOR DETOX USE ONLY) ONE (15:32)
[2024-05-25] MEDS ORDERED: cloNIDine HCL 0.1 MG TABLET ONE (15:32)
[2024-05-25] MEDS ORDERED: NICOTINE 14 MG/24 HOURS TOPICAL PATCH TD ONE (15:32)
[2024-05-25] MEDS ORDERED: PRENATAL VITAMINS W/ FOLIC ACID TABLET (FP) PO ONE (15:32)
[2024-05-25] MEDS ORDERED: methaDONE HCL 10 MG TABLET PO PRN (15:39)
[2024-05-25] MEDS: methaDONE HCL 10 MG TABLET PO ONE (15:44)
[2024-05-25] MEDS: NICOTINE 14 MG/24 HOURS TOPICAL PATCH TD SCH (15:48)
[2024-05-25] MEDS: cloNIDine HCL 0.1 MG TABLET PO SCH (15:48)
[2024-05-25] MEDS: PRENATAL VITAMINS W/ FOLIC ACID TABLET (FP) PO SCH (15:48)
[2024-05-25] MEDS: MELATONIN 5 MG TABLETS PO SCH (22:46)
[2024-05-25] MEDS: THIAMINE 100 MG TABLET PO SCH (22:46)
[2024-05-26] MEDS: methaDONE 40 MG, methaDONE 10 MG PO ONE (10:55)
[2024-05-26] MEDS ORDERED: methaDONE HCL 10 MG TABLET (FOR DETOX USE ONLY) PO ONE (12:43)
[2024-05-26] MEDS: hydrOXYzine PAMOATE 25 MG CAPSULE (FP) PO PRN (15:59)
[2024-05-26] MEDS: METHOCARBAMOL 500 MG TABLET PO PRN (15:59)
[2024-05-26] MEDS: methaDONE HCL 10 MG TABLET PO ONE (19:50)
[2024-05-27] MEDS: methaDONE 40 MG, methaDONE 10 MG PO ONE (09:43)
[2024-05-27] MEDS ORDERED: methaDONE HCL 10 MG TABLET (FOR DETOX USE ONLY) PO ONE (10:00)
[2024-05-27] MEDS ORDERED: methaDONE 40 MG, methaDONE 20 MG PO ONE (10:00)
[2024-05-27] MEDS: cloNIDine HCL 0.1 MG TABLET PO PRN (11:50)
[2024-05-27 14:34] LABS: CHLORIDE 104 mmol/L (98-107); SODIUM 128 mmol/L (136-145)
[2024-05-27 14:36] LABS: POTASSIUM > 10.0 mmol/L (3.5-5.1)
[2024-05-27 14:37] LABS: BLOOD UREA NITROGEN 12.3 mg/dL (7-18)
[2024-05-27 14:39] LABS: ALBUMIN 2.9 g/dl (3.4-5.0); ANION GAP 5 mmol/L (4-13); CO2 19 mmol/L (21-32); GLUCOSE,RANDOM 138 mg/dL (74-106); HEMATOCRIT 37.7 % (32.4-45.2); HEMOGLOBIN 12.3 GM/dL (10.7-15.3); MCH 28.2 pg (25.7-33.7); MCHC 32.6 g/dl (32.0-36.0); MEAN CELL VOLUME 86.5 fl (80-96); MEAN PLT VOLUME 9.2 fl (7.5-11.1); PLATELET COUNT 181 10^3/uL (134-434); RBC 4.36 M/mm3 (3.60-5.2); RDW 15.1 % (11.6-15.6); WHITE BLOOD COUNT 2.8 K/mm3 (4.0-10.0)
[2024-05-27 14:42] LABS: CREATININE 0.8 mg/dL (0.55-1.3); SGOT/AST 58 U/L (15-37); SGPT/ALT 52 U/L (13-61)
[2024-05-27 14:43] LABS: BILIRUBIN,TOTAL 0.2 mg/dL (0.2-1)
[2024-05-27 14:44] LABS: ALK PHOS < 10 U/L (45-117); TOT PROT 8.1 g/dl (6.4-8.2)
[2024-05-28] MEDS ORDERED: methaDONE HCL 10 MG TABLET (FOR DETOX USE ONLY) PO ONE (10:00)
[2024-05-28] MEDS ORDERED: methaDONE 40 MG, methaDONE 30 MG PO ONE (10:00)
[2024-05-29] MEDS: methaDONE 40 MG, methaDONE 20 MG PO ONE (09:08)
[2024-05-29] MEDS ORDERED: methaDONE HCL 10 MG TABLET (FOR DETOX USE ONLY) PO ONE (10:00)
[2024-05-29] MEDS ORDERED: methaDONE HCL 40 MG DISPERSABLE TABLET PO ONE (10:00)
[2024-05-29] MEDS: cloNIDine HCL 0.1 MG TABLET PO PRN (14:28)
[2024-05-30 06:52] VITALS: TEMP 97.6
[2024-05-30] MEDS ORDERED: methaDONE HCL 10 MG TABLET (FOR DETOX USE ONLY) PO ONE (10:00)
[2024-05-30] MEDS ORDERED: methaDONE 80 MG, methaDONE 10 MG PO ONE (10:00)
[2024-05-30 10:14] VITALS: BP 106/73; PULSE 88; RESP 18
[2024-05-31] MEDS ORDERED: BICTEGRAV/EMTRICIT/TENOFOV (BIKTARVY) 50-200-25 MG TABLET PO SCH (10:00)
== END 2024-05-30 10:40 | disposition home or self-care (01) | DRG 773 ==
LOC: YASAS 11:57 → Y6N 15:25
PROVIDERS: ADMIT Allergy & Immunology; ATTEND Family Medicine Addiction Medicine
PROC: HZ2ZZZZ Detoxification Services for Substance Abuse Treatment (ICD-10-PCS; principal; 2024-05-25)
DX: F11.23 Opioid dependence with withdrawal (principal); F10.230 Alcohol dependence with withdrawal, uncomplicated; F13.20 Sedative, hypnotic or anxiolytic dependence, uncomplicated; F14.20 Cocaine dependence, uncomplicated; F17.210 Nicotine dependence, cigarettes, uncomplicated; F31.9 Bipolar disorder, unspecified; F20.9 Schizophrenia, unspecified; F43.10 Post-traumatic stress disorder, unspecified; F41.1 Generalized anxiety disorder; Z21 Asymptomatic human immunodeficiency virus [HIV] infection status; G40.909 Epilepsy, unspecified, not intractable, without status epilepticus; J45.909 Unspecified asthma, uncomplicated; Z91.199 Patient's noncompliance with other medical treatment and regimen due to unspecified reason; Z88.0 Allergy status to penicillin
CPT/HCPCS: 36415; 80053; 80305; 81025; 84132; 85027; 86359; 86360; 86803; 87522; 93005; 93010

== ENCOUNTER 2024-06-26 03:33 | Inpatient (IN) | payer OTHER ==
[2024-06-26] MEDS ORDERED: NALOXONE HCL 0.4 MG/ML VIAL ONE ×2 (05:59→14:40)
[2024-06-26] MEDS ORDERED: VANCOMYCIN 1 GRAM (PRE-DOCKED) 1,000 MG/250 ML BAG IVPB ONE (06:20)
[2024-06-26 06:28] LABS: BASO % 0.8 % (0-2.0); EOS % 3.3 % (0-4.5); HEMATOCRIT 30.9 % (32.4-45.2); HEMOGLOBIN 10.1 GM/dL (10.7-15.3); MCH 28.2 pg (25.7-33.7); MCHC 32.6 g/dl (32.0-36.0); MEAN CELL VOLUME 86.6 fl (80-96); MEAN PLT VOLUME 7.8 fl (7.5-11.1); MONO % 11.8 % (3.8-10.2); NEUT % 69.1 % (42.8-82.8); PLATELET COUNT 259 10^3/uL (134-434); RBC 3.57 M/mm3 (3.60-5.2); RDW 15.9 % (11.6-15.6); WHITE BLOOD COUNT 5.8 K/mm3 (4.0-10.0)
[2024-06-26 06:32] LABS: VENOUS BASE EXCESS 0.7 mmol/L (-2-2); VENOUS O2 SATURATION 72.2 % (70-80); VENOUS PCO2 46.7 mmHg (38-52); VENOUS PH 7.369 (7.310-7.410)
[2024-06-26] MEDS: NALOXONE HCL 0.4 MG/ML VIAL IVPUSH ONE (06:32)
[2024-06-26] MEDS: VANCOMYCIN 1,000 MG in DEXTROSE 5%-WATER - 250 ML IVPB ONE (06:36)
[2024-06-26 06:38] LABS: INR 1.06 (0.83-1.09)
[2024-06-26 06:41] LABS: ACTIVATED PTT 34.4 SECONDS (25.2-36.5)
[2024-06-26 07:00] LABS: POTASSIUM 3.8 mmol/L (3.5-5.1)
[2024-06-26 07:02] LABS: ALBUMIN 2.7 g/dl (3.4-5.0); CALCIUM 8.9 mg/dL (8.5-10.1); MAGNESIUM 1.9 mg/dL (1.8-2.4)
[2024-06-26 07:03] LABS: BLOOD UREA NITROGEN 33.8 mg/dL (7-18)
[2024-06-26 07:06] LABS: CREATININE 1.3 mg/dL (0.55-1.3)
[2024-06-26 07:07] LABS: BILIRUBIN,TOTAL 0.4 mg/dL (0.2-1); TOT PROT 7.8 g/dl (6.4-8.2)
[2024-06-26 07:11] LABS: N-TERMINAL BNP 204.4 pg/ml (5-125)
[2024-06-26] MEDS: SODIUM CHLORIDE 0.9% 500 ML INFUS.BAG IV ONE (07:41)
[2024-06-26] MEDS ORDERED: CEFEPIME 1 GM/100 ML BAG IVPB ONE (07:59)
[2024-06-26] MEDS: CEFEPIME HCL 1 GM VIAL (RESTRICTED TO ID) IVPB ONE (08:40)
[2024-06-26] MEDS: LACTATED RINGERS SOLUTION 1,000 ML/1,000 ML INFUS.BAG IV SCH (11:00)
[2024-06-26] MEDS: HEPARIN NA (PORCINE) 5,000 UNITS/ML 1ML VIAL SQ SCH (11:02)
[2024-06-26] MEDS: BICTEGRAV/EMTRICIT/TENOFOV (BIKTARVY) 50-200-25 MG TABLET PO SCH (11:20)
[2024-06-26] MEDS: BUPRENORPHINE/NALOXONE 8 MG/2 MG FILM PACKET SL SCH (12:52)
[2024-06-26] MEDS ORDERED: VANCOMYCIN/WATER FOR INJ (PEG) 1,000 MG/200 ML BAG IVPB SCH (14:00)
[2024-06-26] MEDS ORDERED: FUROSEMIDE 40 MG/4 ML INJECTABLE VIAL ONE (14:42)
[2024-06-26] MEDS: FUROSEMIDE 40 MG/4 ML INJECTABLE VIAL IVPUSH ONE (14:51)
[2024-06-26] MEDS: CEFEPIME 2 GM in DEXTROSE 5%-WATER 100 ML IVPB SCH (17:37)
[2024-06-26] MEDS ORDERED: CEFEPIME 2 GM in DEXTROSE 5%-WATER 100 ML IVPB SCH (18:00)
[2024-06-26] MEDS ORDERED: VANCOMYCIN 1 GRAM (PRE-DOCKED) 1,000 MG/250 ML BAG IVPB SCH (18:00)
[2024-06-26] MEDS ORDERED: CEFEPIME HCL 2 GM VIAL (RESTRICTED TO ID) IVPB SCH (18:00)
[2024-06-26] MEDS: VANCOMYCIN/WATER FOR INJ (PEG) 1,000 MG/200 ML BAG IVPB SCH (18:37)
[2024-06-27 08:58] LABS: EPI CELLS >36 /uL (0-25.1); HYALINE CASTS 5 /uL (0-3.1); PH,URINE 6.5 (5.0-8.0); URINE APPEARANCE TURBID; URINE BACTERIA >9,000 /uL (0-1359); URINE BILIRUBIN NEGATIVE (NEGATIVE); URINE COLOR YELLOW; URINE GLUCOSE (UA) NEGATIVE (NEGATIVE); URINE KETONE TRACE (NEGATIVE); URINE LEUK ESTERASE 2+ (NEGATIVE); URINE NITRITE POSITIVE (NEGATIVE); URINE PROTEIN 2+ (NEGATIVE); URINE RBC 34 /uL (0-23.9); URINE UROBILINOGEN 0.2 mg/dL (0.2-1.0); URINE WBC 370 /uL (0-25.8)
[2024-06-27 09:48] LABS: URINE BARBITURATES NEGATIVE (NEGATIVE)
[2024-06-27 09:49] LABS: URINE AMPHETAMINES NEGATIVE (NEGATIVE)
[2024-06-27 09:50] LABS: PHENCYCLIDINE,URINE NEGATIVE (NEGATIVE)
[2024-06-27 09:52] LABS: COCAINE, UR POSITIVE (NEGATIVE); METHADONE, UR POSITIVE (NEGATIVE); OPIATES, URI POSITIVE (NEGATIVE); URINE BENZODIAZEPINES POSITIVE (NEGATIVE)
[2024-06-27 10:08] LABS: POTASSIUM 3.8 mmol/L (3.5-5.1)
[2024-06-27 10:13] LABS: CALCIUM 9.1 mg/dL (8.5-10.1)
[2024-06-27 10:14] LABS: BLOOD UREA NITROGEN 21.3 mg/dL (7-18)
[2024-06-27 10:17] LABS: CREATININE 0.9 mg/dL (0.55-1.3)
[2024-06-27 10:51] LABS: EOS % 1.6 % (0-4.5); HEMOGLOBIN 11.1 GM/dL (10.7-15.3); LYMPH % 22.8 % (8-40); MCH 27.7 pg (25.7-33.7); MCHC 31.8 g/dl (32.0-36.0); MEAN CELL VOLUME 87.1 fl (80-96); MEAN PLT VOLUME 9.9 fl (7.5-11.1); MONO % 13.2 % (3.8-10.2); NEUT % 61.4 % (42.8-82.8); PLATELET COUNT 260 10^3/uL (134-434); RBC 4.02 M/mm3 (3.60-5.2); RDW 15.7 % (11.6-15.6); WHITE BLOOD COUNT 4.6 K/mm3 (4.0-10.0)
[2024-06-27 11:25] VITALS: RESP 18
[2024-06-27] MEDS: chlordiazePOXIDE HCL 25 MG CAPSULE PO SCH (11:52)
[2024-06-27] MEDS: TRIMETHOBENZAMIDE HCL 200MG/2ML INJ IM PRN (17:17)
[2024-06-27] MEDS: ACETAMINOPHEN 500 MG TABLET (FP) PO PRN (18:29)
[2024-06-27] MEDS ORDERED: ALBUTEROL SO4 2.5/IPRATROPIUM 0.5 INH SOL 3 ML VIAL.NEB. NEB PRN (19:42)
[2024-06-27] MEDS: CEFEPIME 2 GM in DEXTROSE 5%-WATER 100 ML IVPB SCH (21:45)
[2024-06-27] MEDS: VANCOMYCIN/WATER FOR INJ (PEG) 1,000 MG/200 ML BAG IVPB SCH (21:49)
[2024-06-27] MEDS: TETANUS, DIPHTHERIA TOX,ADULT 0.5 ML VIAL IM ONE (21:50)
[2024-06-28] MEDS: BUPRENORPHINE/NALOXONE 8 MG/2 MG FILM PACKET SL SCH (10:23)
[2024-06-28] MEDS: methaDONE HCL 10 MG TABLET PO ONE (11:17)
[2024-06-28 13:33] VITALS: BMI 23.1
[2024-06-28] MEDS: VANCOMYCIN/WATER FOR INJ (PEG) 1,000 MG/200 ML BAG IVPB SCH (15:14)
[2024-06-28] MEDS ORDERED: CEFEPIME 2 GM in DEXTROSE 5%-WATER 100 ML IVPB SCH (20:00)
[2024-06-29] MEDS ORDERED: chlordiazePOXIDE HCL 10 MG CAPSULE PO PRN
[2024-06-29] MEDS: chlordiazePOXIDE HCL 25 MG CAPSULE PO PRN (03:13)
[2024-06-29] MEDS ORDERED: chlordiazePOXIDE HCL 25 MG CAPSULE PO SCH (05:00)
[2024-06-29] MEDS: MELATONIN 5 MG TABLETS PO ONE (05:45)
[2024-06-29] MEDS: chlordiazePOXIDE HCL 25 MG CAPSULE PO SCH (06:00)
[2024-06-29 07:57] VITALS: BP 114/88; PULSE 69; TEMP 97.9
[2024-06-29] MEDS: methaDONE HCL 10 MG TABLET PO ONE ×2 (10:31→10:34)
[2024-06-29] MEDS: LIDOCAINE 4% PATCH TP SCH (10:35)
[2024-06-29] MEDS ORDERED: LIDOCAINE PATCH REMOVAL MC SCH (22:00)
[2024-06-30] MEDS ORDERED: chlordiazePOXIDE HCL 10 MG CAPSULE PO PRN
[2024-06-30] MEDS ORDERED: chlordiazePOXIDE HCL 10 MG CAPSULE PO SCH (05:00)
[2024-07-01] MEDS ORDERED: chlordiazePOXIDE HCL 10 MG CAPSULE PO SCH (05:00)
[2024-07-02] MEDS ORDERED: chlordiazePOXIDE HCL 10 MG CAPSULE PO ONE (05:00)
== END 2024-06-29 14:30 | disposition other institution (70) | DRG 383 ==
LOC: JER 03:33 → JERBED 09:08 → J6S 10:05
PROVIDERS: ADMIT Internal Medicine; ATTEND Internal Medicine
DX: L03.115 Cellulitis of right lower limb (principal); F14.20 Cocaine dependence, uncomplicated; F20.9 Schizophrenia, unspecified; F11.23 Opioid dependence with withdrawal; G40.909 Epilepsy, unspecified, not intractable, without status epilepticus; F17.200 Nicotine dependence, unspecified, uncomplicated; F10.20 Alcohol dependence, uncomplicated; J45.909 Unspecified asthma, uncomplicated; F43.10 Post-traumatic stress disorder, unspecified; B18.2 Chronic viral hepatitis C; R05.3 Chronic cough; F31.9 Bipolar disorder, unspecified; Z21 Asymptomatic human immunodeficiency virus [HIV] infection status
CPT/HCPCS: 0241U-QW; 36415; 71045-TC-FY; 71250-TC; 73590-TC-LT-FY; 80048; 80053; 80307; 81003; 82803; 82962; 83605; 83615; 83735; 83880; 84484; 85025; 85610; 85730; 86850; 86900; 86901; 87040; 87070; 87186; 87205; 93005; 93010; 93971-TC; 99285-25; J1644